=== PATIENT | female | born 1960 | race Caucasian/White ===

== ENCOUNTER 2016-10-28 16:25 | Emergency (ER) | payer BC ==
[~2016-10-28] VITALS: Ht 167.6 cm; Wt 68.0 kg
[~2016-10-28 16:25] MED LIST: ACHD5005 PO; AMOX-355 PO; AMOX500C2 PO; BACL20TA; CHOL100045 PO; CITA20TA12 PO; CRS350T PO; CTLP20T PO; ESTR2TAB4 PO; ESTROGEN; HYDR1TAB86 PO; LIOT5TAB6 PO; LIRA0.6P SQ; LORA-407 PO; LVT.05T PO; POTA10TA10 PO; PRD20T PO; SERT25TA PO
--- OUTSIDE RECORDS SUMMARY | 2016-10-28 16:32 | XMS REPORT | Continuity of Care Document ---
Author Author [facility] Organization [facility] Address Unknown Phone Unavailable Care Team Providers Care Driver Retraining Instructor Name Role Phone Dorita Mary Grace Zuniga PCP [phone] Source Comments Some departments are not documenting in the electronic medical record. If you do not see the information that you expected, contact Release of Information in the Health Information Management department at [phone] for further assistance in locating additional records.[facility] Active Allergies and Adverse Reactions Allergen Noted Date Severity Reactions Comments Celebrex 07/21/2015 Medium EDEMA Swelling of the face Gabapentin 07/21/2015 Medium HIVES Morphine 07/21/2015 Low VOMITING Stadol 07/21/2015 High HALLUCINATIONS Current Medications Prescription Sig. Disp. Refills Start End Date Status Date ERGOCALCIFEROL (VITAMIN Take by mouth. Active D2) (VITAMIN D PO) Lactobacillus rhamnosus Take by mouth twice Active GG (LACTOBACILLUS daily with meals. RHAMNOSUS (GG)) 15 billion cell cpSP magnesium Active LORazepam (ATIVAN) 1 mg Take 1 mg by mouth every Active tablet 4 hours as needed for Nausea, Vomiting or Other.... potassium chloride(+) Take 10 mEq by mouth Active (MICRO-K) 10 mEq capsule daily. LEVOTHYROXINE SODIUM Take 0.5 mg by mouth. Active (LEVOTHYROXINE PO) DULoxetine DR (CYMBALTA) Take 60 mg by mouth Active 30 mg capsule daily. liothyronine (CYTOMEL) 5 Take 5 mcg by mouth Active mcg tab daily. traMADol (ULTRAM) 50 mg Take 50 mg by mouth every Active tablet 6 hours as needed for Pain. HYDROcodone/acetaminophen Take 1 Tab by mouth every Active (NORCO; VICODIN) 5-325 mg 4 hours as needed for tablet Pain Active Problems No known active problems Social History Tobacco Use Types Packs/Day Years Used Date Never Smoker Last Filed Vital Signs Vital Sign Reading Time Taken Blood Pressure 121/77 04/02/2016 12:36 PM RADAR ENGINEER Pulse 86 04/02/2016 12:36 PM [employer]AR ENGINE[employer] Temperature 36.9 C (98.5 F) 04/02/2016 12:36 PM RADAR ENGINEER Respiratory Rate 16 04/02/2016 12:36 PM [employer]AR ENGINE[employer] Height 1.676 m (5' 6") 04/02/2016 12:36 PM RADAR ENGINEER Weight 67.314 kg (148 lb 6.4 oz) 04/02/2016 12:36 PM RADAR ENGINEER Body Mass Index 23.96 04/02/2016 12:36 PM RADAR ENGINEER Oxygen Saturation - - Plan of Care Health Maintenance Due Date Last Done Comments Hepatitis C Screening 1962 Physical (Comprehensive) 1969 Exam Pertussis Vaccine 1973 Tetanus Vaccine 1979 Cervical Cancer Screening 1983 Breast Cancer Screening 2002 Colorectal Cancer 2012 Screening Influenza Vaccine 12/17/2016 Results from Last 3 Months Not on file
--- OUTSIDE RECORDS SUMMARY | 2016-10-28 16:34 | XMS REPORT | Continuity of Care Document ---
Author Author [facility] Organization [facility] Address Unknown Phone Unavailable Allergies Active Description Code Type Severity Reaction Onset Reported/Identified Relationship to Patient Clinical Status Yes butorphanol [id number] Drug Allergy Mild N/A 04/11/2009 Yes celecoxib [id number] Drug Allergy Mild N/A 04/11/2009 Yes gabapentin [id number] Drug Allergy Unknown DIZZINESS 04/09/2015 Medications Problems Date Dx Coded Attending Type Code Diagnosis Diagnosed By 10/02/2009 Ot 610.0 05/12/2010 Ot 461.9 05/12/2010 Ot 462 07/03/2010 Ot 470 07/03/2010 Ot 473.2 07/03/2010 Ot 478.0 03/07/2014 QAMAR PHD MD, B T Ot 723.1 03/07/2014 KRISTINION PHD , B T Ot 724.1 03/07/2014 KRISTINION PHD , B T Ot 724.2 03/07/2014 KRISTINION PHD , B T Ot V57.1 03/18/2014 KRISTINION PHD , B T Ot 723.1 03/18/2014 QAMAR PHD , B T Ot 724.1 03/18/2014 QAMAR PHD , B T Ot 724.2 03/18/2014 KRISTINION PHD , B T Ot V57.1 04/08/2014 KRISTINION PHD , B T Ot 723.1 04/08/2014 KRISTINION PHD , B T Ot 724.1 04/08/2014 KRISTINION PHD , B T Ot 724.2 04/08/2014 QAMAR PHD , B T Ot V57.1 04/14/2014 Ot 610.0 04/14/2014 Ot 610.0 04/14/2014 Ot 473.9 04/14/2014 Ot 478.19 04/14/2014 Ot 592.0 04/14/2014 Ot 592.0 04/14/2014 Ot 721.3 04/14/2014 Ot 470 04/14/2014 Ot 473.9 04/14/2014 Ot 478.19 04/14/2014 Ot 473.9 04/14/2014 Ot 780.79 04/14/2014 Ot V72.63 04/14/2014 Ot V72.81 04/14/2014 Ot V74.8 04/14/2014 Ot 599.70 04/14/2014 Ot 789.09 04/14/2014 Ot 473.1 04/14/2014 Ot 473.2 04/14/2014 Ot V76.12 04/14/2014 Ot 786.50 04/14/2014 Ot 240.9 04/14/2014 Ot 268.9 04/14/2014 Ot 790.6 04/14/2014 Ot 536.8 04/14/2014 Ot 610.0 04/14/2014 Ot 789.01 04/14/2014 Ot 610.0 04/14/2014 Ot 793.80 04/14/2014 DORIS PEÑALOZA L CONTROL DIRECTOR Ot V76.12 04/14/2014 DORIS PEÑALOZA L CONTROL DIRECTOR Ot 536.8 04/14/2014 DORIS PEÑALOZA L CONTROL DIRECTOR Ot 789.00 04/14/2014 CINTHIA PRINCE DO Ot 625.9 04/14/2014 DORIS PEÑALOZA L CONTROL DIRECTOR Ot 562.10 04/14/2014 AUDREY PEÑALOZAIA L CONTROL DIRECTOR Ot 573.8 04/14/2014 AUDREY PEÑALOZAIA L CONTROL DIRECTOR Ot 592.0 04/14/2014 DORIS PEÑALOZA L CONTROL DIRECTOR Ot 724.5 04/14/2014 NICHELLE PEÑALOZARICIA L CONTROL DIRECTOR Ot 789.00 04/14/2014 CHAVA PEÑALOZA DO Ot 241.0 04/14/2014 CHAVA PEÑALOZA DO Ot V76.12 04/14/2014 DORIS PEÑALOZA L CONTROL DIRECTOR Ot 473.9 04/14/2014 DORIS PEÑALOZA L CONTROL DIRECTOR Ot 780.4 04/14/2014 DORIS PEÑALOZA L CONTROL DIRECTOR Ot 780.60 04/14/2014 DORIS PEÑALOZA L CONTROL DIRECTOR Ot 784.0 04/14/2014 DORIS PEÑALOZA CONTROL DIRECTOR Ot 721.0 04/14/2014 DORIS PEÑALOZA CONTROL DIRECTOR Ot 721.3 04/14/2014 DORIS PEÑALOZA CONTROL DIRECTOR Ot 724.01 04/14/2014 DORIS PEÑALOZA CONTROL DIRECTOR Ot 241.0 04/14/2014 QAMAR PHD , B T Ot 723.1 04/14/2014 QAMAR PHD , B T Ot 724.1 04/14/2014 QAMAR PHD , B T Ot 724.2 04/14/2014 QAMAR PHD , B T Ot V57.1 04/14/2014 CELSO HOWARD, JAREN Miller Ot 276.69 04/14/2014 JAREN HOUSTON MD Ot 786.50 04/14/2014 JAREN HOUSTON MD Ot V58.69 04/24/2014 CHAVA PEÑALOZA DO Ot 786.50 05/03/2014 RON MARTE MD Ot 722.4 05/03/2014 RON MARTE MD Ot V58.69 05/13/2014 CHAVA PEÑALOZA DO Ot 786.50 05/24/2014 RON MARTE MD Ot 722.51 05/24/2014 RON MARTE MD Ot 722.52 05/24/2014 RON MARTE MD Ot V58.69 06/04/2014 QAMAR RODRIGUES MD, B Matt Ot 723.1 06/04/2014 QAMAR RODRIGUES MD, Peña Gutierrez Ot 724.1 06/04/2014 QAMAR RODRIGUES MD, B T Ot 724.2 06/04/2014 QAMAR RODRIGUES MD, B T Ot V57.1 09/16/2014 DORIS PEÑALOZA CONTROL DIRECTOR Ot 240.9 09/16/2014 DORIS PEÑALOZA CONTROL DIRECTOR Ot 611.72 09/16/2014 DORIS PEÑALOZA CONTROL DIRECTOR Ot 276.51 09/16/2014 DORIS PEÑALOZA CONTROL DIRECTOR Ot 787.03 09/16/2014 DORIS PEÑALOZA CONTROL DIRECTOR Ot 276.51 09/16/2014 DORIS PEÑALOZA CONTROL DIRECTOR Ot 787.03 09/17/2014 DORIS PEÑALOZA CONTROL DIRECTOR Ot 240.9 09/17/2014 JHDORIS CONTROL DIRECTOR Ot 611.72 09/17/2014 JHDORIS CONTROL DIRECTOR Ot 276.51 09/17/2014 PEÑALOZADORIS CONTROL DIRECTOR Ot 787.03 10/01/2014 PEÑALOZADORIS CONTROL DIRECTOR Ot 240.9 10/01/2014 JHDORIS CONTROL DIRECTOR Ot 611.72 10/02/2014 JHDORIS CONTROL DIRECTOR Ot 276.51 10/02/2014 JHDORIS CONTROL DIRECTOR Ot 787.03 12/02/2014 ESTUARDO HOWARD, RON Milton Ot 722.51 12/02/2014 RON MARTE MD Ot 722.52 12/02/2014 RON MARTE MD Ot V58.69 12/26/2014 LARISSA MARTIN CONTROL DIRECTOR Ot 625.9 12/26/2014 LARISSA MARTIN CONTROL DIRECTOR Ot 789.00 02/17/2015 Ot 592.0 02/17/2015 Ot 592.0 02/17/2015 Ot 721.3 02/17/2015 Ot 470 02/17/2015 Ot 473.9 02/17/2015 Ot 478.19 02/17/2015 Ot 473.9 02/17/2015 Ot 780.79 02/17/2015 Ot V72.63 02/17/2015 Ot V72.81 02/17/2015 Ot V74.8 02/17/2015 Ot 599.70 02/17/2015 Ot 789.09 02/17/2015 Ot 473.1 02/17/2015 Ot 473.2 02/17/2015 Ot V76.12 02/17/2015 Ot 786.50 02/17/2015 Ot 240.9 02/17/2015 Ot 268.9 02/17/2015 Ot 790.6 02/17/2015 Ot 536.8 02/17/2015 Ot 610.0 02/17/2015 Ot 789.01 02/17/2015 Ot 610.0 02/17/2015 Ot 793.80 02/17/2015 HJ DORIS Guanaco CONTROL DIRECTOR Ot V76.12 02/17/2015 JH DORIS Blanc CONTROL DIRECTOR Ot 536.8 02/17/2015 JH DORIS L CONTROL DIRECTOR Ot 789.00 02/17/2015 CINTHIA PRINCE DO Ot 625.9 02/17/2015 PEÑALOZA, DORIS L CONTROL DIRECTOR Ot 562.10 02/17/2015 PEÑALOZA, DORIS L CONTROL DIRECTOR Ot 573.8 02/17/2015 PEÑALOZA, DORIS L CONTROL DIRECTOR Ot 592.0 02/17/2015 PEÑALOZA, DORIS L CONTROL DIRECTOR Ot 724.5 02/17/2015 PEÑALOZA, DORIS L CONTROL DIRECTOR Ot 789.00 02/17/2015 CHAVA PEÑALOZA DO Ot 241.0 02/17/2015 CHAVA PEÑALOZA DO Ot V76.12 02/17/2015 NICHELLE PEÑALOZARICIA L CONTROL DIRECTOR Ot 473.9 02/17/2015 PEÑALOZA, DORIS L CONTROL DIRECTOR Ot 780.4 02/17/2015 JH DORIS L CONTROL DIRECTOR Ot 780.60 02/17/2015 PEÑALOZA, DORIS L CONTROL DIRECTOR Ot 784.0 02/17/2015 PEÑALOZA, DORIS L CONTROL DIRECTOR Ot 721.0 02/17/2015 PEÑALOZA, DORIS L CONTROL DIRECTOR Ot 721.3 02/17/2015 PEÑALZOA, DORIS L CONTROL DIRECTOR Ot 724.01 02/17/2015 PEÑALOZA, DORIS L CONTROL DIRECTOR Ot 241.0 02/17/2015 CHAVA PEÑALOZA DO Ot 786.50 02/17/2015 Ot 723.1 02/17/2015 Ot 724.1 02/17/2015 Ot 724.2 02/17/2015 Ot V57.1 02/17/2015 PEÑALOZA, DORIS L CONTROL DIRECTOR Ot 276.51 02/17/2015 PEÑALOZA, DORIS L CONTROL DIRECTOR Ot 787.03 02/17/2015 PEÑALOZA, DORIS L CONTROL DIRECTOR Ot 240.9 02/17/2015 PEÑALOZA, DORIS L CONTROL DIRECTOR Ot 611.72 02/17/2015 LARISSA MARTIN CONTROL DIRECTOR Ot 625.9 02/17/2015 LARISSA MARTIN CONTROL DIRECTOR Ot 789.00 02/17/2015 RON MARTE MD Ot M51.26 02/18/2015 RON MARTE MD Ot M51.26 04/09/2015 Ot 723.1 04/09/2015 Ot 724.1 04/09/2015 Ot 724.2 04/09/2015 Ot V57.1 04/09/2015 MARLEN MOTLEY CONTROL DIRECTOR Ot Z01.89 04/09/2015 MARLEN MOTLEY CONTROL DIRECTOR Ot Z80.42 04/14/2015 Ot 721.3 04/14/2015 Ot 470 04/14/2015 Ot 473.9 04/14/2015 Ot 478.19 04/14/2015 Ot 473.9 04/14/2015 Ot 780.79 04/14/2015 Ot V72.63 04/14/2015 Ot V72.81 04/14/2015 Ot V74.8 04/14/2015 Ot 599.70 04/14/2015 Ot 789.09 04/14/2015 Ot 473.1 04/14/2015 Ot 473.2 04/14/2015 Ot V76.12 04/14/2015 Ot 786.50 04/14/2015 Ot 240.9 04/14/2015 Ot 268.9 04/14/2015 Ot 790.6 04/14/2015 Ot 536.8 04/14/2015 Ot 610.0 04/14/2015 Ot 789.01 04/14/2015 Ot 610.0 04/14/2015 Ot 793.80 04/14/2015 DORIS PEÑALOZA L CONTROL DIRECTOR Ot V76.12 04/14/2015 DORIS PEÑALOZA L CONTROL DIRECTOR Ot 536.8 04/14/2015 DORIS PEÑALOZA L CONTROL DIRECTOR Ot 789.00 04/14/2015 CINTHIA PRINCE DO Ot 625.9 04/14/2015 DORIS PEÑALOZA L CONTROL DIRECTOR Ot 562.10 04/14/2015 DORIS PEÑALOZA L CONTROL DIRECTOR Ot 573.8 04/14/2015 DORIS PEÑALOZA L CONTROL DIRECTOR Ot 592.0 04/14/2015 DORIS PEÑALOZA L CONTROL DIRECTOR Ot 724.5 04/14/2015 DORIS PEÑALOZA L CONTROL DIRECTOR Ot 789.00 04/14/2015 CHAVA PEÑALOZA DO Ot 241.0 04/14/2015 CHAVA PEÑALOZA DO Ot V76.12 04/14/2015 DORIS PEÑALOZA CONTROL DIRECTOR Ot 473.9 04/14/2015 DORIS PEÑALOZA CONTROL DIRECTOR Ot 780.4 04/14/2015 DORIS PEÑALOZA CONTROL DIRECTOR Ot 780.60 04/14/2015 DORIS PEÑALOZA CONTROL DIRECTOR Ot 784.0 04/14/2015 DORIS PEÑALOZA CONTROL DIRECTOR Ot 721.0 04/14/2015 DORIS PEÑALOZA CONTROL DIRECTOR Ot 721.3 04/14/2015 DORIS PEÑALOZA CONTROL DIRECTOR Ot 724.01 04/14/2015 DORIS PEÑALOZA CONTROL DIRECTOR Ot 241.0 04/14/2015 CHAVA PEÑALOZA DO Ot 786.50 04/14/2015 Ot 723.1 04/14/2015 Ot 724.1 04/14/2015 Ot 724.2 04/14/2015 Ot V57.1 04/14/2015 DORIS PEÑALOZA CONTROL DIRECTOR Ot 276.51 04/14/2015 DORIS PEÑALOZA CONTROL DIRECTOR Ot 787.03 04/14/2015 DORIS PEÑALOZA CONTROL DIRECTOR Ot 240.9 04/14/2015 DORIS PEÑALOZA CONTROL DIRECTOR Ot 611.72 04/14/2015 LARISSA MARTIN CONTROL DIRECTOR Ot 625.9 04/14/2015 LARISSA MARTIN CONTROL DIRECTOR Ot 789.00 04/14/2015 ESTUARDO HOWARD, RON Milton Ot M51.26 04/14/2015 MARLEN MOTLEY CONTROL DIRECTOR Ot Z01.89 04/14/2015 MARLEN MOTLEY CONTROL DIRECTOR Ot Z80.42 04/14/2015 IAN HOWARD, KAY Gallardo Ot Z01.818 04/14/2015 IAN HOWARD, KAY Gallardo Ot K57.90 04/14/2015 IAN HOWARD, KAY Gallardo Ot Z09 04/14/2015 IAN HOWARD, KAY Gallardo Ot Z12.11 04/14/2015 IAN HOWARD, KAY Gallardo Ot Z86.010 04/14/2015 IAN HOWARD, KAY Gallardo Ot Z01.818 05/15/2015 MARLEN MOTLEY CONTROL DIRECTOR Ot Z14.8 05/15/2015 MARLEN MOTLEY CONTROL DIRECTOR Ot Z80.0 05/19/2015 TARYN TOLBERT CLAM PICKER Ot Z15.01 05/21/2015 TARYN TOLBERT CLAM PICKER Ot Z15.01 05/29/2015 TARYN TOLBERT CLAM PICKER Ot Z15.01 06/05/2015 FRANCISCO VILLATORO CONTROL DIRECTOR Ot Z15.01 06/05/2015 TARYN TOLBERT CLAM PICKER Ot Z15.01 06/10/2015 PARTHA SNIDER CLAM PICKER Ot R53.1 06/10/2015 PARTHA SNIDER CLAM PICKER Ot R53.83 06/10/2015 FRANCISCO VILLATORO CONTROL DIRECTOR Ot Z15.01 06/10/2015 MARLEN MOTLEY CONTROL DIRECTOR Ot Z14.8 06/10/2015 MARLEN MOTLEY CONTROL DIRECTOR Ot Z80.0 06/10/2015 TARYN TOLBERT CLAM PICKER Ot Z15.01 06/10/2015 Ot 721.3 06/10/2015 Ot 470 06/10/2015 Ot 473.9 06/10/2015 Ot 478.19 06/10/2015 Ot 473.9 06/10/2015 Ot 780.79 06/10/2015 Ot V72.63 06/10/2015 Ot V72.81 06/10/2015 Ot V74.8 06/10/2015 Ot 599.70 06/10/2015 Ot 789.09 06/10/2015 Ot 473.1 06/10/2015 Ot 473.2 06/10/2015 Ot V76.12 06/10/2015 Ot 786.50 06/10/2015 Ot 240.9 06/10/2015 Ot 268.9 06/10/2015 Ot 790.6 06/10/2015 Ot 536.8 06/10/2015 Ot 610.0 06/10/2015 Ot 789.01 06/10/2015 Ot 610.0 06/10/2015 Ot 793.80 06/10/2015 DORIS PEÑALOZA CONTROL DIRECTOR Ot V76.12 06/10/2015 DORIS PEÑALOZA CONTROL DIRECTOR Ot 536.8 06/10/2015 PEÑALOZA, DORIS L CONTROL DIRECTOR Ot 789.00 06/10/2015 CINTHIA PRINCE DO Ot 625.9 06/10/2015 NICHELLE PEÑALOZARICIA L CONTROL DIRECTOR Ot 562.10 06/10/2015 PEÑALOZA, DORIS L CONTROL DIRECTOR Ot 573.8 06/10/2015 PEÑALOZA, DORIS L CONTROL DIRECTOR Ot 592.0 06/10/2015 PEÑALOZA, DORIS L CONTROL DIRECTOR Ot 724.5 06/10/2015 PEÑALOZA, DORIS L CONTROL DIRECTOR Ot 789.00 06/10/2015 CHAVA PEÑALOZA DO Ot 241.0 06/10/2015 CHAVA PEÑALOZA DO Ot V76.12 06/10/2015 NICHELLE PEÑALOZARICIA L CONTROL DIRECTOR Ot 473.9 06/10/2015 JH DORIS L CONTROL DIRECTOR Ot 780.4 06/10/2015 JH DORIS L CONTROL DIRECTOR Ot 780.60 06/10/2015 JH DORIS L CONTROL DIRECTOR Ot 784.0 06/10/2015 JH DORIS L CONTROL DIRECTOR Ot 721.0 06/10/2015 PEÑALOZA, DORIS L CONTROL DIRECTOR Ot 721.3 06/10/2015 JH DORIS L CONTROL DIRECTOR Ot 724.01 06/10/2015 PEÑALOZA, DORIS L CONTROL DIRECTOR Ot 241.0 06/10/2015 CHAVA PEÑALOZA DO Ot 786.50 06/10/2015 Ot 723.1 06/10/2015 Ot 724.1 06/10/2015 Ot 724.2 06/10/2015 Ot V57.1 06/10/2015 JH DORIS L CONTROL DIRECTOR Ot 276.51 06/10/2015 PEÑALOZA, DORIS L CONTROL DIRECTOR Ot 787.03 06/10/2015 JH DORIS L CONTROL DIRECTOR Ot 240.9 06/10/2015 PEÑALOZA, DORIS L CONTROL DIRECTOR Ot 611.72 06/10/2015 LARISSA MARTIN CONTROL DIRECTOR Ot 625.9 06/10/2015 LARISSA MARTIN CONTROL DIRECTOR Ot 789.00 06/10/2015 RON MARTE MD Ot M51.26 06/10/2015 MOTLEYMARLEN Avina CONTROL DIRECTOR Ot Z01.89 06/10/2015 MOTLEYMARLEN Avina CONTROL DIRECTOR Ot Z80.42 06/10/2015 IAN HOWARD, KAY M Ot Z01.818 06/10/2015 MOTLEYMARLEN Avina CONTROL DIRECTOR Ot Z14.8 06/10/2015 MOTLEYMARLEN Avina CONTROL DIRECTOR Ot Z80.0 06/10/2015 TARYN TOLBERT CLAM PICKER Ot Z15.01 06/10/2015 FRANCISCO VILLATORO CONTROL DIRECTOR Ot Z15.01 06/10/2015 PARTHA SNIDER CLAM PICKER Ot R53.1 06/10/2015 PARTHA SNIDER CLAM PICKER Ot R53.83 06/16/2015 PARTHA SNIDER CLAM PICKER Ot R53.1 06/16/2015 PARTHA SNIDER CLAM PICKER Ot R53.83 07/28/2015 NICHOLE FERRARI CLAM PICKER Ot E03.9 07/28/2015 NICHOLE FERRARI CLAM PICKER Ot M19.90 07/28/2015 NICHOLE FERRARI CLAM PICKER Ot Z15.02 07/28/2015 NICHOLE FERRARI CLAM PICKER Ot Z86.19 07/31/2015 PARTHA SNIDER CLAM PICKER Ot R53.1 07/31/2015 PARTHA SNIDER CLAM PICKER Ot R53.83 07/31/2015 TARYN TOLBERT CLAM PICKER Ot Z15.01 07/31/2015 FRANCISCO VILLATORO CONTROL DIRECTOR Ot Z15.01 07/31/2015 CLYDE MOTLEYNELSON Fabrice CONTROL DIRECTOR Ot Z14.8 07/31/2015 MOTLEY MARLEN Fabrice CONTROL DIRECTOR Ot Z80.0 08/06/2015 NICHOLE FERRARI CLAM PICKER Ot E03.9 HYPOTHYROIDISM, UNSPECIFIED 08/06/2015 NICHOLE FERRARI CLAM PICKER Ot M19.90 UNSPECIFIED OSTEOARTHRITIS, UNSPECIFIED 08/06/2015 NICHOLE FERRARI CLAM PICKER Ot 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 08/06/2015 NICHOLE FERRARI CLAM PICKER Ot Z86.19 PERSONAL HISTORY OF OTHER INFECTIOUS AND 08/07/2015 NICHOLE FERRARI CLAM PICKER Ot E03.9 HYPOTHYROIDISM, UNSPECIFIED 08/07/2015 NICHOLE FERRARI CLAM PICKER Ot M19.90 UNSPECIFIED OSTEOARTHRITIS, UNSPECIFIED 08/07/2015 NICHOLE FERRARI CLAM PICKER Ot 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 08/07/2015 NICHOLE FERRARI CLAM PICKER Ot Z86.19 PERSONAL HISTORY OF OTHER INFECTIOUS AND 10/13/2015 FRANCISCO VILLATORO CONTROL DIRECTOR Ot 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 10/13/2015 FRANCISCO VILLATORO CONTROL DIRECTOR Ot K76.89 OTHER SPECIFIED DISEASES OF LIVER 10/13/2015 FRANCISCO VILLATORO CONTROL DIRECTOR Ot M47.22 OTHER SPONDYLOSIS WITH RADICULOPATHY , CE 10/13/2015 FRANCISCO VILLATORO CONTROL DIRECTOR Ot M54.2 CERVICALGIA 10/13/2015 FRANCISCO VILLATORO CONTROL DIRECTOR Ot M54.5 LOW BACK PAIN 10/13/2015 FRANCISCO VILLATORO CONTROL DIRECTOR Ot N20.0 CALCULUS OF KIDNEY 10/13/2015 FRANCISCO VILLATORO CONTROL DIRECTOR Ot 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 10/13/2015 FRANCISCO VILLATORO CONTROL DIRECTOR Ot Z80.0 FAMILY HISTORY OF MALIGNANT NEOPLASM OF 10/17/2015 FRANCISCO VILLATORO CONTROL DIRECTOR Ot 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 10/17/2015 FRANCISCO VILLATORO CONTROL DIRECTOR Ot K76.89 OTHER SPECIFIED DISEASES OF LIVER 10/17/2015 FRANCISCO VILLATORO CONTROL DIRECTOR Ot M47.22 OTHER SPONDYLOSIS WITH RADICULOPATHY , CE 10/17/2015 FRANCISCO VILLATORO CONTROL DIRECTOR Ot M54.2 CERVICALGIA 10/17/2015 FRANCISCO VILLATORO CONTROL DIRECTOR Ot M54.5 LOW BACK PAIN 10/17/2015 FRANCISCO VILLATORO CONTROL DIRECTOR Ot N20.0 CALCULUS OF KIDNEY 10/17/2015 FRANCISCO VILLATORO CONTROL DIRECTOR Ot 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 10/17/2015 FRANCISCO VILLATORO CONTROL DIRECTOR Ot Z80.0 FAMILY HISTORY OF MALIGNANT NEOPLASM OF 10/19/2015 FRANCISCO VILLATORO CONTROL DIRECTOR Ot 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 10/19/2015 IRVINGFRANCISCO CONTROL DIRECTOR Ot K76.89 OTHER SPECIFIED DISEASES OF LIVER 10/19/2015 IRVINGOSCARARJUN Gallardo CONTROL DIRECTOR Ot M47.22 OTHER SPONDYLOSIS WITH RADICULOPATHY , CE 10/19/2015 IRVINGFRANCISCO Paulina CONTROL DIRECTOR Ot M54.2 CERVICALGIA 10/19/2015 IRVINGOSCARARJUN Gallardo CONTROL DIRECTOR Ot M54.5 LOW BACK PAIN 10/19/2015 IRVING FRANCISCO M CONTROL DIRECTOR Ot N20.0 CALCULUS OF KIDNEY 10/19/2015 IRVINGOSCARARJUN Gallardo CONTROL DIRECTOR Ot 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 10/19/2015 IRVING FRANCISCO M CONTROL DIRECTOR Ot Z80.0 FAMILY HISTORY OF MALIGNANT NEOPLASM OF 10/23/2015 MEE VILLATOROHANARJUN Gallardo CONTROL DIRECTOR Ot 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 10/23/2015 FRANCISCO VILLATORO CONTROL DIRECTOR Ot K76.89 OTHER SPECIFIED DISEASES OF LIVER 10/23/2015 IRVING FRANCISCO M CONTROL DIRECTOR Ot M47.22 OTHER SPONDYLOSIS WITH RADICULOPATHY , CE 10/23/2015 IRVING FRANCISCO M CONTROL DIRECTOR Ot M54.2 CERVICALGIA 10/23/2015 IRVING FRANCISCO M CONTROL DIRECTOR Ot M54.5 LOW BACK PAIN 10/23/2015 FRANCISCO VILLATORO CONTROL DIRECTOR Ot N20.0 CALCULUS OF KIDNEY 10/23/2015 IRVING FRANCISCO M CONTROL DIRECTOR Ot 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 10/23/2015 IRVING FRANCISCO M CONTROL DIRECTOR Ot Z80.0 FAMILY HISTORY OF MALIGNANT NEOPLASM OF 11/07/2015 FRANCISCO VILLATORO CONTROL DIRECTOR Ot 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 11/07/2015 MEE VILLATOROHANARJUN Gallardo CONTROL DIRECTOR Ot K76.89 OTHER SPECIFIED DISEASES OF LIVER 11/07/2015 FRANCISCO VILLATORO CONTROL DIRECTOR Ot M47.22 OTHER SPONDYLOSIS WITH RADICULOPATHY , CE 11/07/2015 IRVING FRANCISCO M CONTROL DIRECTOR Ot M54.2 CERVICALGIA 11/07/2015 FRANCISCO VILLATORO CONTROL DIRECTOR Ot M54.5 LOW BACK PAIN 11/07/2015 FRANCISCO VILLATORO CONTROL DIRECTOR Ot N20.0 CALCULUS OF KIDNEY 11/07/2015 FRANCISCO VILLATORO [facility] Ot 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 Visit Date/Time Discharge Status Pt. Type Provider Facility Loc./Unit Complaint [id number] 04/14/2015 09:11:00 2014 12:05:00 DIS Outpatient KAY SOSA MD [facility] [id number] 02/05/2015 08:14:00 2014 23:59:59 CLS Outpatient RON MARTE MD [facility] RAD [id number] 12/12/2014 09:41:00 2014 23:59:59 CLS Outpatient LARISSA MARTIN [facility] RAD [id number] 12/02/2014 13:48:00 2014 15:31:00 DIS Outpatient RON MARTE MD [facility] CARD [id number] 09/06/2014 07:35:00 2014 23:59:59 CLS Outpatient DORIS PEÑALOZA [facility] RAD [id number] 08/21/2014 11:15:00 2014 23:59:59 CLS Outpatient DORIS PEÑALOZA [facility] [id number] 06/04/2014 13:02:00 2014 23:59:59 CLS Outpatient QAMAR RODRIGUES MD, Peña Gutierrez [facility] REHAB [id number] 05/24/2014 07:06:00 2014 08:03:00 DIS Outpatient RON MARTE MD [facility] CARD [id number] 05/03/2014 08:51:00 2014 10:02:00 DIS Outpatient RON MARTE MD [facility] CARD [id number] 04/16/2014 07:16:00 2013 23:59:59 CLS Outpatient CHAVA PEÑALOZA DO [facility] CARD [id number] 04/14/2014 15:52:00 2013 17:30:00 DIS Emergency CELSO HOWARD, JAREN Miller [facility] ER [id number] 02/05/2014 11:11:00 2013 23:59:59 CLS Outpatient PEÑALOZANICHELLEDORIS L CONTROL DIRECTOR [facility] RAD [id number] 01/31/2014 15:06:00 2013 23:59:59 CLS Outpatient PEÑALOZA DORIS L CONTROL DIRECTOR [facility] RAD [id number] 12/05/2013 11:45:00 2013 23:59:59 CLS Outpatient PEÑALOZA, DORIS L CONTROL DIRECTOR [facility] RAD [id number] 08/31/2013 10:20:00 2013 23:59:59 CLS Outpatient PEÑALOZA CHAVA [facility] RAD [id number] 07/17/2013 09:33:00 2013 23:59:59 CLS Outpatient PEÑALOZA DORIS L CONTROL DIRECTOR [facility] RAD [id number] 11/15/2012 14:59:00 2012 23:59:59 CLS Outpatient CINTHIA PRINCE DO [facility] RAD [id number] 10/13/2012 09:53:00 2012 23:59:59 CLS Outpatient PEÑALOZA DORIS L CONTROL DIRECTOR [facility] RAD [id number] 08/17/2012 15:30:00 2012 23:59:59 CLS Outpatient PEÑALOZA DORIS L CONTROL DIRECTOR [facility] RAD [id number] 10/13/2015 15:07:00 ACT Outpatient FRANCISCO VILLATORO CONTROL DIRECTOR [facility] RAD [id number] 10/10/2015 13:43:00 ACT Outpatient FRANCISCO VILLATORO CONTROL DIRECTOR [facility] RAD [id number] 07/25/2015 12:40:00 ACT Outpatient NICHOLE FERRARI CLAM PICKER [facility] RAD [id number] 05/30/2015 10:30:00 ACT Outpatient PARTHA SNIDER CLAM PICKER [facility] CARD [id number] 05/19/2015 13:50:00 ACT Outpatient IRVING FRANCISCO M CONTROL DIRECTOR [facility] RAD [id number] 05/14/2015 10:33:00 ACT Outpatient TOMASZ TARYN Yoan CLAM PICKER [facility] RAD [id number] 04/23/2015 14:36:00 ACT Outpatient MARLEN MOTLEY CONTROL DIRECTOR [facility] ONC [id number] 04/09/2015 06:09:00 ACT Outpatient AIN HOWARD, KAY Gallardo [facility] PREOP [id number] 03/25/2015 13:47:00 ACT Outpatient MARLEN MOTLEY CONTROL DIRECTOR [facility] ONC [id number] 06/05/2014 00:11:00 Document Registration [id number] 04/14/2014 15:53:00 Document Registration [id number] 04/14/2014 15:53:00 Document Registration [id number] 04/14/2014 15:52:00 Document Registration [id number] 09/06/2011 15:01:00 Document Registration [id number] 06/14/2011 07:20:00 Document Registration [id number] 04/07/2011 08:02:00 Document Registration [id number] 03/29/2011 10:52:00 Document Registration [id number] 10/26/2010 13:41:00 Document Registration [id number] 08/18/2010 14:43:00 Document Registration [id number] 08/18/2010 14:16:00 Document Registration [id number] 08/03/2010 13:37:00 Document Registration [id number] 07/03/2010 05:43:00 Document Registration [id number] 06/25/2010 12:59:00 Document Registration [id number] 05/26/2010 09:40:00 Document Registration [id number] 05/11/2010 23:31:00 Document Registration [id number] 03/11/2010 09:28:00 Document Registration [id number] 10/01/2009 14:18:00 Document Registration [id number] 09/12/2009 08:21:00 Document Registration [id number] 09/08/2009 12:34:00 Document Registration [id number] 04/23/2009 09:58:00 Document Registration [id number] 02/26/2009 13:57:00 Document Registration [id number] 10/23/2008 09:47:00 Document Registration
[2016-10-28] MEDS ORDERED: LORA1TAB (16:44)
[2016-10-28] MEDS ORDERED: HYDR-3812 (16:44)
[2016-10-28] MEDS ORDERED: TRAM50TA2 (16:44)
[2016-10-28 16:45] LABS: BASOPHILS % (AUTO) 0 % (0-10); EOSINOPHILS # (AUTO) 0.3 10^3/uL (0.0-0.3); EOSINOPHILS % (AUTO) 3 % (0-10); LYMPHOCYTES # (AUTO) 3.3 X 10^3 (1.0-4.0); LYMPHOCYTES % (AUTO) 34 % (12-44); MEAN CORPUSCULAR HEMOGLOBIN 29 PG (25-34); MEAN CORPUSCULAR HGB CONC 33 G/DL (32-36); MEAN CORPUSCULAR VOLUME 87 FL (80-99); MEAN PLATELET VOLUME 9.8 FL (7.4-10.4); MONOCYTES # (AUTO) 0.9 X 10^3 (0.0-1.0); MONOCYTES % (AUTO) 9 % (0-12); NEUTROPHILS # (AUTO) 5.2 X 10^3 (1.8-7.8); NEUTROPHILS % (AUTO) 54 % (42-75); PLATELET COUNT 271 10^3/uL (130-400); RED BLOOD COUNT 4.44 10^6/uL (4.35-5.85); RED CELL DISTRIBUTION WIDTH 13.1 % (10.0-14.5); WHITE BLOOD COUNT 9.7 10^3/uL (4.3-11.0)
[2016-10-28] MEDS ORDERED: OMEP20CA12 (16:45)
[2016-10-28] MEDS ORDERED: ONDA4TAB10 (16:45)
[2016-10-28] MEDS ORDERED: LEVO50TA6 (16:45)
[2016-10-28] MEDS ORDERED: FLUO20CA25 (16:45)
[2016-10-28] MEDS ORDERED: MELO7.5T46 (16:45)
[2016-10-28 17:00] LABS: ALANINE AMINOTRANSFERASE 24 U/L (0-55); ALBUMIN 3.9 GM/DL (3.2-4.5); ANION GAP 8 MMOL/L (5-14); ASPARTATE AMINO TRANSFERASE 33 U/L (5-34); BILIRUBIN,TOTAL 0.8 MG/DL (0.1-1.0); BLOOD UREA NITROGEN 18 MG/DL (7-18); BUN/CREATININE RATIO 22; CALCIUM 9.3 MG/DL (8.5-10.1); CARBON DIOXIDE 26 MMOL/L (21-32); CHLORIDE 105 MMOL/L (98-107); CREATININE SERUM 0.83 MG/DL (0.60-1.30); GFR ESTIMATED > 60; GLUCOSE 83 MG/DL (70-105); SODIUM 139 MMOL/L (135-145); TOTAL PROTEIN 6.8 GM/DL (6.4-8.2)
[2016-10-28 17:06] LABS: TROPONIN I < 0.30 NG/ML (<0.30)
--- NOTE | 2016-10-28 17:09 | Diagnostic Imaging Report ---
INDICATION: Chest pain with radiation to left shoulder and arm. TECHNIQUE: Single view chest 4:57 PM. CORRELATION STUDY: None FINDINGS: The heart size, mediastinal configuration and pulmonary vascularity are within normal limits. The lungs are clear with no consolidating infiltrate. There is no significant effusion or pneumothorax. A few probable granulomas are present. IMPRESSION: 1. No radiographic evidence for acute abnormality of the chest. Dictated by: Dictated on workstation # [id number]
--- NOTE | 2016-10-28 17:25 | ED Chest Pain ---
General Chief Complaint: Chest Pain Stated Complaint: CHEST PAIN,SOB,LT ARM AND BACK PAIN/NUMBNESS Nursing Triage Note: PT STATES CHEST PAIN FOR ABOUT 90 MIN WITH SOB, CLEANED 2 HOUSES TODAY. PT ALSO STATES NOT URINATING MUCH TODAY, ONLY THE SECOND TIME HERE IN THE ER. Nursing Sepsis Screen: No Definite Risk Source: patient Exam Limitations: no limitations History of Present Illness Time seen by provider: 17:20 Initial Comments The patient is a 56-year-old white female with complaint of a complaint of anterior chest pressure for about 90 minutes prior to arrival. She sees Dr. Kevin and had called the office and was advised to come here. There is a family history of heart disease with 3 male members having had myocardial infarctions before age 60. She does not know what her cholesterol is and does not take medication. She had a previous hysterectomy since oophorectomy. She has subsequently undergone menopause. She is a lifetime nonsmoker. 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 Timing/Duration: 1-3 hours Severity/Quality: mild, moderate Location: central Radiation: back Activities at Onset: activity Prior CP/Workup: no prior chest pain, no prior cardiac workup Modifying Factors: improves with antacids, improves with other (benzodiazepine ) Associated Symptoms: denies symptoms Allergies and Home Medications Allergies Coded Allergies: morphine (Verified Allergy, Intermediate, 10/28/16) butorphanol (Unverified Allergy, Mild, 04/11/09) celecoxib (Unverified Allergy, Mild, 04/11/09) gabapentin (Verified Allergy, Unknown, DIZZINESS, 04/09/15) Home Medications Fluoxetine HCl 20 Mg Capsule, #30 (Reported) Hydrocodone/Acetaminophen 1 Each Tablet, #30 (Reported) Levothyroxine Sodium 50 Mcg Tablet, #30 (Reported) Liothyronine Sodium 5 Mcg Tablet, 5 MCG PO DAILY, (Reported) Lorazepam 1 Mg Tablet, #60 (Reported) Meloxicam 7.5 Mg Tablet, #90 (Reported) Omeprazole 20 Mg Capsule., #30 (Reported) Ondansetron HCl 4 Mg Tablet, #30 (Reported) Potassium Chloride 10 Meq Tablet.er, 10 MEQ PO DAILY, (Reported) Tramadol HCl 50 Mg Tablet, #90 (Reported) Review of Systems Constitutional: see HPI EENTM: No Symptoms Reported Respiratory: No Symptoms Reported Cardiovascular: See HPI, Chest Pain Gastrointestinal: No Symptoms Reported Genitourinary: No Symptoms Reported Musculoskeletal: no symptoms reported Skin: no symptoms reported Psychiatric/Neurological: No Symptoms Reported Endocrine: No Symptoms Reported Hematologic/Lymphatic: No Symptoms Reported Past Vsgfxvh-[id number]-Rzufye Hx Patient Social History Alcohol Use: Denies Use Recreational Drug Use: No Smoking Status: Never a Smoker Recent Foreign Travel: No Contact w/Someone Who Travel: No Recent Infectious Disease Expo: No Recent Hopitalizations: No Immunizations Up To Date Date of Influenza Vaccine: Jan 30, 2015 Seasonal Allergies Seasonal Allergies: Yes Surgeries HX Surgeries: Yes (back, hand, kidney biopsy) Surgeries: Adenoidectomy, Breast, Hysterectomy, Orthopedic, Tonsillectomy Respiratory Hx Respiratory Disorders: No Cardiovascular Hx Cardiac Disorders: No Neurological Hx Neurological Disorders: No Reproductive System Hx Reproductive Disorders: No Sexually Transmitted Disease: No Genitourinary Hx Genitourinary Disorders: Yes (STONES) Gastrointestinal Hx Gastrointestinal Disorders: No Musculoskeletal Hx Musculoskeletal Disorders: Yes (BACK/HAND/OSTEOARTHRITIS/DEGENERATIVE DISC) Musculoskeletal Disorders: Degenerate Disk Disease, Arthritis Endocrine Hx Endocrine Disorders: Yes Endocrine Disorders: Hypothyroidsim HEENT HX ENT Disorders: No Cancer Hx Cancer: No Cancer: Skin Psychosocial Hx Psychiatric Problems: Yes Behavioral Health Disorders: Anxiety, Depression Integumentary HX Skin/Integumentary Disorder: No Blood Transfusions Hx Blood Disorders: No Physical Exam Vital Signs Vital Sign - Last 12Hours 10/28/16 16:28 Temp 96.2 Pulse 69 Resp 18 B/P (MAP) 135/70 Pulse Ox 100 O2 Delivery Room Air Capillary Refill : Less Than 3 Seconds General Appearance: Anxious HEENT: Normal ENT Inspection Neck: Full Range of Motion, Normal Inspection Respiratory: Chest Non Tender, Lungs Clear, Normal Breath Sounds, No Accessory Muscle Use, No Respiratory Distress Cardiovascular: Regular Rate, Rhythm, No Edema, No Gallop, No JVD, No Murmur, Normal Peripheral Pulses Gastrointestinal: Normal Bowel Sounds, No Organomegaly, No Pulsatile Mass, Non Tender Neurologic/Psychiatric: Alert, Oriented x3, No Motor/Sensory Deficits, Normal Mood/Affect Skin: Normal Color, Warm/Dry Lymphatic: No Adenopathy Progress/Results/Core Measures Results/Orders Lab Results Laboratory Tests Test 10/28/16 16:34 Range/Units White Blood Count 9.7 4.3-11.0 10^3/uL Red Blood Count 4.44 4.35-5.85 10^6/uL Hemoglobin 12.8 11.5-16.0 G/DL Hematocrit 39 35-52 % Mean Corpuscular Volume 87 80-99 FL Mean Corpuscular Hemoglobin 29 25-34 PG Mean Corpuscular Hemoglobin Concent 33 32-36 G/DL Red Cell Distribution Width 13.1 10.0-14.5 % Platelet Count 271 130-400 10^3/uL Mean Platelet Volume 9.8 7.4-10.4 FL Neutrophils (%) (Auto) 54 42-75 % Lymphocytes (%) (Auto) 34 12-44 % Monocytes (%) (Auto) 9 0-12 % Eosinophils (%) (Auto) 3 0-10 % Basophils (%) (Auto) 0 0-10 % Neutrophils # (Auto) 5.2 1.8-7.8 X 10^3 Lymphocytes # (Auto) 3.3 1.0-4.0 X 10^3 Monocytes # (Auto) 0.9 0.0-1.0 X 10^3 Eosinophils # (Auto) 0.3 0.0-0.3 10^3/uL Basophils # (Auto) 0.0 0.0-0.1 10^3/uL Sodium Level 139 135-145 MMOL/L Potassium Level 4.0 3.6-5.0 MMOL/L Chloride Level 105 98-107 MMOL/L Carbon Dioxide Level 26 21-32 MMOL/L Anion Gap 8 5-14 MMOL/L Blood Urea Nitrogen 18 7-18 MG/DL Creatinine 0.83 0.60-1.30 MG/DL Estimat Glomerular Filtration Rate > 60 BUN/Creatinine Ratio 22 Glucose Level 83 70-105 MG/DL Calcium Level 9.3 8.5-10.1 MG/DL Total Bilirubin 0.8 0.1-1.0 MG/DL Aspartate Amino Transf (AST/SGOT) 33 5-34 U/L Alanine Aminotransferase (ALT/SGPT) 24 0-55 U/L Alkaline Phosphatase 68 40-136 U/L Troponin I < 0.30 <0.30 NG/ML Total Protein 6.8 6.4-8.2 GM/DL Albumin 3.9 3.2-4.5 GM/DL My Orders Orders - KVNG CHEEK MD Ekg Tracing (10/28/16 16:27) Chest 1 View, Ap/Pa Only (10/28/16 16:27) Cbc With Automated Diff (10/28/16 16:27) Comprehensive Metabolic Panel (10/28/16 16:27) Troponin I (10/28/16 16:27) Vital Signs/I&O Vital Sign - Last 12Hours 10/28/16 16:28 Temp 96.2 Pulse 69 Resp 18 B/P (MAP) 135/70 Pulse Ox 100 O2 Delivery Room Air Blood Pressure Mean: 91 Departure Communication Progress Notes Discussed the findings with Dr. Kevin. All of our measures were negative relative to myocardium. She instructed me to have the patient call her office in the morning to set up a cardiology appointment. Impression Impression: Primary Impression: Chest pain Disposition: 01 HOME, SELF-CARE Condition: Stable/Unchanged Departure-Patient Inst. Decision time for Depature: 17:51 Referrals: ESSIE KEVIN MD (PCP/Family) Primary Care Physician Patient Instructions: Chest Pain That Is Not Caused by the Heart (DC) Add. Discharge Instructions: All discharge instructions reviewed with patient and/or family. Voiced understanding. I discussed the findings here today with Dr. Kevin by phone. We agreed that that you should call her office in the morning to arrange a cardiology outpatient appointment. New If symptoms recur/increase return to emergency room. KVNG CHEEK MD Oct 28, 2016 17:25
[2016-10-28 18:08] VITALS: BP 104/61
== END 2016-10-28 18:08 | disposition home or self-care (01) ==
LOC: EDUNIT# 16:25 → ER 16:28
DX: R07.9 Chest pain, unspecified (principal); E03.9 Hypothyroidism, unspecified; Z79.899 Other long term (current) drug therapy; Z82.49 Family history of ischemic heart disease and other diseases of the circulatory system
CPT/HCPCS: 36415; 71010; 80053; 84484; 85025; 93005

== ENCOUNTER → 2016-10-29 | Day surgery (SDC) | payer BC ==
[~2016-10-29] VITALS: Ht 167.6 cm; Wt 68.0 kg
[~2016-10-29] MED LIST changes: +CATHETER FLUSH 10 ML SYR IV PRN; +FLUO20CA25; +HYDR-3812; +LEVO50TA6; +LORA1TAB; +MELO7.5T46; +NS IV 1000 ML 1,000 ML IV ONE; +OMEP20CA12; +ONDA4TAB10; +TRAM50TA2; +cefTRIAXone 1 GM/NS 50 ML IVPB IV ONE
--- OUTSIDE RECORDS SUMMARY | 2016-10-29 13:04 | XMS REPORT | Continuity of Care Document ---
Author Author [facility] Organization [facility] Address Unknown Phone Unavailable Care Team Providers Care Collection Advisor Name Role Phone Dorita Mary Grace Zuniga PCP [phone] Source Comments Some departments are not documenting in the electronic medical record. If you do not see the information that you expected, contact Release of Information in the Health Information Management department at [phone] for further assistance in locating additional records.[facility] Active Allergies and Adverse Reactions Allergen Noted [...] Taken Blood Pressure 121/77 04/02/2016 12:36 PM [employer]EF[employer]IST Pulse 86 04/02/2016 12:36 PM [employer]EF[employer]IST Temperature 36.9 C (98.5 F) 04/02/2016 12:36 PM [employer]EF[employer] SPECIALIST Respiratory Rate 16 04/02/2016 12:36 PM [employer]EF[employer]IST Height 1.676 m (5' 6") 04/02/2016 12:36 PM [employer]EF[employer] SPECIALIST Weight 67.314 kg (148 lb 6.4 oz) 04/02/2016 12:36 PM [employer]EF[employer]IST Body Mass Index 23.96 04/02/2016 12:36 PM [employer]EF[employer]IST Oxygen Saturation - - Plan of Care Health Maintenance Due Date Last Done Comments Hepatitis C Screening 1962 Physical (Comprehensive) 1969 Exam Pertussis Vaccine 1973 Tetanus Vaccine 1979 Cervical Cancer Screening 1983 Breast Cancer Screening 2002 Colorectal Cancer 2012 Screening Influenza Vaccine 12/17/2016 Results from Last 3 Months Not on file
--- OUTSIDE RECORDS SUMMARY | 2016-10-29 13:06 | XMS REPORT | Continuity of Care Document ---
Author Author [facility] Organization [facility] Address Unknown Phone Unavailable Allergies Active Description Code Type Severity Reaction Onset Reported/Identified Relationship to Patient Clinical Status Yes butorphanol [id number] Drug Allergy Mild N/A 04/11/2009 Yes celecoxib [id number] Drug Allergy Mild N/A 04/11/2009 Yes gabapentin [id number] Drug Allergy Unknown DIZZINESS 04/09/2015 Medications Problems [...] PHD , B T Ot 724.1 03/18/2014 KRISTINION PHD , B T Ot 724.2 03/18/2014 [...] 04/14/2014 Ot 793.80 04/14/2014 DORIS PEÑALOZA L CLINIC SPECIALIST Ot V76.12 04/14/2014 DORIS PEÑALOZA L CLINIC SPECIALIST Ot 536.8 04/14/2014 DORIS PEÑALOZA L CLINIC SPECIALIST Ot 789.00 04/14/2014 CINTHIA PRINCE DO Ot 625.9 04/14/2014 DORIS PEÑALOZA L CLINIC SPECIALIST Ot 562.10 04/14/2014 AUDREY PEÑALOZAIA L CLINIC SPECIALIST Ot 573.8 04/14/2014 AUDREY PEÑALOZAIA L CLINIC SPECIALIST Ot 592.0 04/14/2014 DORIS PEÑALOZA L CLINIC SPECIALIST Ot 724.5 04/14/2014 NICHELLE PEÑALOZARICIA L CLINIC SPECIALIST Ot 789.00 04/14/2014 CHAVA PEÑALOZA DO Ot 241.0 04/14/2014 CHAVA PEÑALOZA DO Ot V76.12 04/14/2014 DORIS PEÑALOZA L CLINIC SPECIALIST Ot 473.9 04/14/2014 DORIS PEÑALOZA L CLINIC SPECIALIST Ot 780.4 04/14/2014 DORIS PEÑALOZA L CLINIC SPECIALIST Ot 780.60 04/14/2014 DORIS PEÑALOZA L CLINIC SPECIALIST Ot 784.0 04/14/2014 DORIS PEÑALOZA CLINIC SPECIALIST Ot 721.0 04/14/2014 DORIS PEÑALOZA CLINIC SPECIALIST Ot 721.3 04/14/2014 DORIS PEÑALOZA CLINIC SPECIALIST Ot 724.01 04/14/2014 DORIS PEÑALOZA CLINIC SPECIALIST Ot 241.0 04/14/2014 QAMAR PHD , B [...] B T Ot V57.1 09/16/2014 DORIS PEÑALOZA CLINIC SPECIALIST Ot 240.9 09/16/2014 DORIS PEÑALOZA CLINIC SPECIALIST Ot 611.72 09/16/2014 DORIS PEÑALOZA CLINIC SPECIALIST Ot 276.51 09/16/2014 DORIS PEÑALOZA CLINIC SPECIALIST Ot 787.03 09/16/2014 DORIS PEÑALOZA CLINIC SPECIALIST Ot 276.51 09/16/2014 DORIS PEÑALOZA CLINIC SPECIALIST Ot 787.03 09/17/2014 DORIS PEÑALOZA CLINIC SPECIALIST Ot 240.9 09/17/2014 JHDORIS CLINIC SPECIALIST Ot 611.72 09/17/2014 JHDORIS CLINIC SPECIALIST Ot 276.51 09/17/2014 PEÑALOZADORIS CLINIC SPECIALIST Ot 787.03 10/01/2014 PEÑALOZADORIS CLINIC SPECIALIST Ot 240.9 10/01/2014 JHDORIS CLINIC SPECIALIST Ot 611.72 10/02/2014 JHDORIS CLINIC SPECIALIST Ot 276.51 10/02/2014 JHDORIS CLINIC SPECIALIST Ot 787.03 12/02/2014 ESTUARDO HOWARD, RON [place] Ot 722.51 12/02/2014 RON MARTE MD Ot 722.52 12/02/2014 RON MARTE MD Ot V58.69 12/26/2014 LARISSA MARTIN CLINIC SPECIALIST Ot 625.9 12/26/2014 LARISSA MARTIN CLINIC SPECIALIST Ot 789.00 02/17/2015 Ot 592.0 02/17/2015 Ot [...] 02/17/2015 Ot 610.0 02/17/2015 Ot 793.80 02/17/2015 JH DORIS Guanaco CLINIC SPECIALIST Ot V76.12 02/17/2015 JH DORIS Blanc CLINIC SPECIALIST Ot 536.8 02/17/2015 JH DORIS L CLINIC SPECIALIST Ot 789.00 02/17/2015 CINTHIA PRINCE DO Ot 625.9 02/17/2015 PEÑALOZA, DORIS L CLINIC SPECIALIST Ot 562.10 02/17/2015 PEÑALOZA, DORIS L CLINIC SPECIALIST Ot 573.8 02/17/2015 PEÑALOZA, DORIS L CLINIC SPECIALIST Ot 592.0 02/17/2015 PEÑALOZA, DORIS L CLINIC SPECIALIST Ot 724.5 02/17/2015 PEÑALOZA, DORIS L CLINIC SPECIALIST Ot 789.00 02/17/2015 CHAVA PEÑALOZA DO Ot 241.0 02/17/2015 CHAVA PEÑALOZA DO Ot V76.12 02/17/2015 NICHELLE PEÑALOZARICIA L CLINIC SPECIALIST Ot 473.9 02/17/2015 PEÑALOZA, DORIS L CLINIC SPECIALIST Ot 780.4 02/17/2015 JH DORIS L CLINIC SPECIALIST Ot 780.60 02/17/2015 PEÑALOZA, DORIS L CLINIC SPECIALIST Ot 784.0 02/17/2015 PEÑALOZA, DORIS L CLINIC SPECIALIST Ot 721.0 02/17/2015 PEÑALOZA, DORIS L CLINIC SPECIALIST Ot 721.3 02/17/2015 PEÑALOZA, DORIS L CLINIC SPECIALIST Ot 724.01 02/17/2015 PEÑALOZA, DORIS L CLINIC SPECIALIST Ot 241.0 02/17/2015 CHAVA PEÑALOZA DO Ot 786.50 02/17/2015 Ot 723.1 02/17/2015 Ot 724.1 02/17/2015 Ot 724.2 02/17/2015 Ot V57.1 02/17/2015 PEÑALOZA, DORIS L CLINIC SPECIALIST Ot 276.51 02/17/2015 PEÑALOZA, DORIS L CLINIC SPECIALIST Ot 787.03 02/17/2015 PEÑALOZA, DORIS L CLINIC SPECIALIST Ot 240.9 02/17/2015 PEÑALOZA, DORIS L CLINIC SPECIALIST Ot 611.72 02/17/2015 LARISSA MARTIN CLINIC SPECIALIST Ot 625.9 02/17/2015 LARISSA MARTIN CLINIC SPECIALIST Ot 789.00 02/17/2015 RON MARTE MD Ot M51.26 02/18/2015 RON MARTE MD Ot M51.26 04/09/2015 Ot 723.1 04/09/2015 Ot 724.1 04/09/2015 Ot 724.2 04/09/2015 Ot V57.1 04/09/2015 MARLEN MOTLEY CLINIC SPECIALIST Ot Z01.89 04/09/2015 MARLEN MOTLEY CLINIC SPECIALIST Ot Z80.42 04/14/2015 Ot 721.3 04/14/2015 Ot [...] 04/14/2015 Ot 793.80 04/14/2015 DORIS PEÑALOZA L CLINIC SPECIALIST Ot V76.12 04/14/2015 DORIS PEÑALOZA L CLINIC SPECIALIST Ot 536.8 04/14/2015 DORIS PEÑALOZA L CLINIC SPECIALIST Ot 789.00 04/14/2015 CINTHIA PRINCE DO Ot 625.9 04/14/2015 DORIS PEÑALOZA L CLINIC SPECIALIST Ot 562.10 04/14/2015 DORIS PEÑALOZA L CLINIC SPECIALIST Ot 573.8 04/14/2015 DORIS PEÑALOZA L CLINIC SPECIALIST Ot 592.0 04/14/2015 DORIS PEÑALOZA L CLINIC SPECIALIST Ot 724.5 04/14/2015 DORIS PEÑALOZA L CLINIC SPECIALIST Ot 789.00 04/14/2015 CHAVA PEÑALOZA DO Ot 241.0 04/14/2015 CHAVA PEÑALOZA DO Ot V76.12 04/14/2015 DORIS PEÑALOZA CLINIC SPECIALIST Ot 473.9 04/14/2015 DORIS PEÑALOZA CLINIC SPECIALIST Ot 780.4 04/14/2015 DORIS PEÑALOZA CLINIC SPECIALIST Ot 780.60 04/14/2015 DORIS PEÑALOZA CLINIC SPECIALIST Ot 784.0 04/14/2015 DORIS PEÑALOZA CLINIC SPECIALIST Ot 721.0 04/14/2015 DORIS PEÑALOZA CLINIC SPECIALIST Ot 721.3 04/14/2015 DORIS PEÑALOZA CLINIC SPECIALIST Ot 724.01 04/14/2015 DORIS PEÑALOZA CLINIC SPECIALIST Ot 241.0 04/14/2015 CHAVA PEÑALOZA DO Ot 786.50 04/14/2015 Ot 723.1 04/14/2015 Ot 724.1 04/14/2015 Ot 724.2 04/14/2015 Ot V57.1 04/14/2015 DORIS PEÑALOZA CLINIC SPECIALIST Ot 276.51 04/14/2015 DORIS PEÑALOZA CLINIC SPECIALIST Ot 787.03 04/14/2015 DORIS PEÑALOZA CLINIC SPECIALIST Ot 240.9 04/14/2015 DORIS PEÑALOZA CLINIC SPECIALIST Ot 611.72 04/14/2015 LARISSA MARTIN CLINIC SPECIALIST Ot 625.9 04/14/2015 LARISSA MARTIN CLINIC SPECIALIST Ot 789.00 04/14/2015 ESTUARDO HOWARD, RON [place] Ot M51.26 04/14/2015 MARLEN MOTLEY CLINIC SPECIALIST Ot Z01.89 04/14/2015 MARLEN MOTLEY CLINIC SPECIALIST Ot Z80.42 04/14/2015 IAN HOWARD, KAY Gallardo Ot Z01.818 04/14/2015 IAN HOWARD, KAY Gallardo Ot K57.90 04/14/2015 IAN HOWARD, KAY Gallardo Ot Z09 04/14/2015 IAN HOWARD, KAY Gallardo Ot Z12.11 04/14/2015 IAN HOWARD, KAY Gallardo Ot Z86.010 04/14/2015 IAN HOWARD, KAY Gallardo Ot Z01.818 05/15/2015 MARLEN MOTLEY CLINIC SPECIALIST Ot Z14.8 05/15/2015 MARLEN MOTLEY CLINIC SPECIALIST Ot Z80.0 05/19/2015 TARYN TOLBERT RESPOOLER Ot Z15.01 05/21/2015 TARYN TOLBERT RESPOOLER Ot Z15.01 05/29/2015 TARYN TOLBERT RESPOOLER Ot Z15.01 06/05/2015 FRANCISCO VILLATORO CLINIC SPECIALIST Ot Z15.01 06/05/2015 TARYN TOLBERT RESPOOLER Ot Z15.01 06/10/2015 PARTHA SNIDER RESPOOLER Ot R53.1 06/10/2015 PARTHA SNIDER RESPOOLER Ot R53.83 06/10/2015 FRANCISCO VILLATORO CLINIC SPECIALIST Ot Z15.01 06/10/2015 MARLEN MOTLEY CLINIC SPECIALIST Ot Z14.8 06/10/2015 MARLEN MOTLEY CLINIC SPECIALIST Ot Z80.0 06/10/2015 TARYN TOLBERT RESPOOLER Ot Z15.01 06/10/2015 Ot 721.3 06/10/2015 Ot [...] 610.0 06/10/2015 Ot 793.80 06/10/2015 DORIS PEÑALOZA CLINIC SPECIALIST Ot V76.12 06/10/2015 DORIS PEÑALOZA CLINIC SPECIALIST Ot 536.8 06/10/2015 PEÑALOZA, DORIS L CLINIC SPECIALIST Ot 789.00 06/10/2015 CINTHIA PRINCE DO Ot 625.9 06/10/2015 NICHELLE PEÑALOZARICIA L CLINIC SPECIALIST Ot 562.10 06/10/2015 PEÑALOZA, DORIS L CLINIC SPECIALIST Ot 573.8 06/10/2015 PEÑALOZA, DORIS L CLINIC SPECIALIST Ot 592.0 06/10/2015 PEÑALOZA, DORIS L CLINIC SPECIALIST Ot 724.5 06/10/2015 PEÑALOZA, DORIS L CLINIC SPECIALIST Ot 789.00 06/10/2015 CHAVA PEÑALOZA DO Ot 241.0 06/10/2015 CHAVA PEÑALOZA DO Ot V76.12 06/10/2015 NICHELLE PEÑALOZARICIA L CLINIC SPECIALIST Ot 473.9 06/10/2015 JH DORIS L CLINIC SPECIALIST Ot 780.4 06/10/2015 JH DORIS L CLINIC SPECIALIST Ot 780.60 06/10/2015 JH DORIS L CLINIC SPECIALIST Ot 784.0 06/10/2015 JH DORIS L CLINIC SPECIALIST Ot 721.0 06/10/2015 PEÑALOZA, DORIS L CLINIC SPECIALIST Ot 721.3 06/10/2015 JH DORIS L CLINIC SPECIALIST Ot 724.01 06/10/2015 PEÑALOZA, DORIS L CLINIC SPECIALIST Ot 241.0 06/10/2015 CHAVA PEÑALOZA DO Ot 786.50 06/10/2015 Ot 723.1 06/10/2015 Ot 724.1 06/10/2015 Ot 724.2 06/10/2015 Ot V57.1 06/10/2015 JH DORIS L CLINIC SPECIALIST Ot 276.51 06/10/2015 PEÑALOZA, DORIS L CLINIC SPECIALIST Ot 787.03 06/10/2015 JH DORIS L CLINIC SPECIALIST Ot 240.9 06/10/2015 PEÑALOZA, DORIS L CLINIC SPECIALIST Ot 611.72 06/10/2015 LARISSA MARTIN CLINIC SPECIALIST Ot 625.9 06/10/2015 LARISSA MARTIN CLINIC SPECIALIST Ot 789.00 06/10/2015 RON MARTE MD Ot M51.26 06/10/2015 MOTLEYMARLEN Avina CLINIC SPECIALIST Ot Z01.89 06/10/2015 MOTLEYMARLEN Avina CLINIC SPECIALIST Ot Z80.42 06/10/2015 IAN HOWARD, KAY M Ot Z01.818 06/10/2015 MOTLEYMARLEN Avina CLINIC SPECIALIST Ot Z14.8 06/10/2015 MOTLEYMARLEN Avina CLINIC SPECIALIST Ot Z80.0 06/10/2015 TARYN TOLBERT RESPOOLER Ot Z15.01 06/10/2015 FRANCISCO VILLATORO CLINIC SPECIALIST Ot Z15.01 06/10/2015 PARTHA SNIDER RESPOOLER Ot R53.1 06/10/2015 PARTHA SNIDER RESPOOLER Ot R53.83 06/16/2015 PARTHA SNIDER RESPOOLER Ot R53.1 06/16/2015 PARTHA SNIDER RESPOOLER Ot R53.83 07/28/2015 NICHOLE FERRARI RESPOOLER Ot E03.9 07/28/2015 NICHOLE FERRARI RESPOOLER Ot M19.90 07/28/2015 NICHOLE FERRARI RESPOOLER Ot Z15.02 07/28/2015 NICHOLE FERRARI RESPOOLER Ot Z86.19 07/31/2015 PARTHA SNIDER RESPOOLER Ot R53.1 07/31/2015 PARTHA SNIDER RESPOOLER Ot R53.83 07/31/2015 TARYN TOLBERT RESPOOLER Ot Z15.01 07/31/2015 FRANCISCO VILLATORO CLINIC SPECIALIST Ot Z15.01 07/31/2015 CLYDE MOTLEYNELSON Fabrice CLINIC SPECIALIST Ot Z14.8 07/31/2015 MOTLEY MARLEN Fabrice CLINIC SPECIALIST Ot Z80.0 08/06/2015 NICHOLE FERRARI RESPOOLER Ot E03.9 HYPOTHYROIDISM, UNSPECIFIED 08/06/2015 NICHOLE FERRARI RESPOOLER Ot M19.90 UNSPECIFIED OSTEOARTHRITIS, UNSPECIFIED 08/06/2015 NICHOLE FERRARI RESPOOLER Ot 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 08/06/2015 NICHOLE FERRARI RESPOOLER Ot Z86.19 PERSONAL HISTORY OF OTHER INFECTIOUS AND 08/07/2015 NICHOLE FERRARI RESPOOLER Ot E03.9 HYPOTHYROIDISM, UNSPECIFIED 08/07/2015 NICHOLE FERRARI RESPOOLER Ot M19.90 UNSPECIFIED OSTEOARTHRITIS, UNSPECIFIED 08/07/2015 NICHOLE FERRARI RESPOOLER Ot 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 08/07/2015 NICHOLE FERRARI RESPOOLER Ot Z86.19 PERSONAL HISTORY OF OTHER INFECTIOUS AND 10/13/2015 FRANCISCO VILLATORO CLINIC SPECIALIST Ot 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 10/13/2015 FRANCISCO VILLATORO CLINIC SPECIALIST Ot K76.89 OTHER SPECIFIED DISEASES OF LIVER 10/13/2015 FRANCISCO VILLATORO CLINIC SPECIALIST Ot M47.22 OTHER SPONDYLOSIS WITH RADICULOPATHY , CE 10/13/2015 FRANCISCO VILLATORO CLINIC SPECIALIST Ot M54.2 CERVICALGIA 10/13/2015 FRANCISCO VILLATORO CLINIC SPECIALIST Ot M54.5 LOW BACK PAIN 10/13/2015 FRANCISCO VILLATORO CLINIC SPECIALIST Ot N20.0 CALCULUS OF KIDNEY 10/13/2015 FRANCISCO VILLATORO CLINIC SPECIALIST Ot 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 10/13/2015 FRANCISCO VILLATORO CLINIC SPECIALIST Ot Z80.0 FAMILY HISTORY OF MALIGNANT NEOPLASM OF 10/17/2015 FRANCISCO VILLATORO CLINIC SPECIALIST Ot 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 10/17/2015 FRANCISCO VILLATORO CLINIC SPECIALIST Ot K76.89 OTHER SPECIFIED DISEASES OF LIVER 10/17/2015 FRANCISCO VILLATORO CLINIC SPECIALIST Ot M47.22 OTHER SPONDYLOSIS WITH RADICULOPATHY , CE 10/17/2015 FRANCISCO VILLATORO CLINIC SPECIALIST Ot M54.2 CERVICALGIA 10/17/2015 FRANCISCO VILLATORO CLINIC SPECIALIST Ot M54.5 LOW BACK PAIN 10/17/2015 FRANCISCO VILLATORO CLINIC SPECIALIST Ot N20.0 CALCULUS OF KIDNEY 10/17/2015 FRANCISCO VILLATORO CLINIC SPECIALIST Ot 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 10/17/2015 FRANCISCO VILLATORO CLINIC SPECIALIST Ot Z80.0 FAMILY HISTORY OF MALIGNANT NEOPLASM OF 10/19/2015 FRANCISCO VILLATORO CLINIC SPECIALIST Ot 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 10/19/2015 IRVINGFRANCISCO CLINIC SPECIALIST Ot K76.89 OTHER SPECIFIED DISEASES OF LIVER 10/19/2015 IRVINGOSCARARJUN Gallardo CLINIC SPECIALIST Ot M47.22 OTHER SPONDYLOSIS WITH RADICULOPATHY , CE 10/19/2015 IRVINGFRANCISCO Paulina CLINIC SPECIALIST Ot M54.2 CERVICALGIA 10/19/2015 IRVINGOSCARARJUN Gallardo CLINIC SPECIALIST Ot M54.5 LOW BACK PAIN 10/19/2015 IRVING FRANCISCO M CLINIC SPECIALIST Ot N20.0 CALCULUS OF KIDNEY 10/19/2015 IRVINGOSCARARJUN Gallardo CLINIC SPECIALIST Ot 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 10/19/2015 IRVING FRANCISCO M CLINIC SPECIALIST Ot Z80.0 FAMILY HISTORY OF MALIGNANT NEOPLASM OF 10/23/2015 MEE VILLATOROHANARJUN Gallardo CLINIC SPECIALIST Ot 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 10/23/2015 FRANCISCO VILLATORO CLINIC SPECIALIST Ot K76.89 OTHER SPECIFIED DISEASES OF LIVER 10/23/2015 IRVING FRANCISCO M CLINIC SPECIALIST Ot M47.22 OTHER SPONDYLOSIS WITH RADICULOPATHY , CE 10/23/2015 IRVING FRANCISCO M CLINIC SPECIALIST Ot M54.2 CERVICALGIA 10/23/2015 IRVING FRANCISCO M CLINIC SPECIALIST Ot M54.5 LOW BACK PAIN 10/23/2015 FRANCISCO VILLATORO CLINIC SPECIALIST Ot N20.0 CALCULUS OF KIDNEY 10/23/2015 IRVING FRANCISCO M CLINIC SPECIALIST Ot 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0 CALCULUS OF KIDNEY 11/07/2015 FRANCISCO VILLATORO [facility] Ot 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 11/07/2015 FRANCISCO VILLATORO [facility] Ot Z80.0 FAMILY HISTORY OF MALIGNANT NEOPLASM OF Procedures Results Test Result Range Complete blood count (CBC) with automated white blood cell (WBC) differential - 10/28/16 16:34 Blood leukocytes automated count (number/volume) 9.7 10*3/ uL 4.3-11.0 Blood erythrocytes automated count (number/volume) 4.44 10*6 /uL 4.35-5.85 Venous blood hemoglobin measurement (mass/volume) 12.8 g/dL 11.5-16.0 Blood hematocrit (volume fraction) 39 % 35-52 Automated erythrocyte mean corpuscular volume 87 [foz_us] 80-99 Automated erythrocyte mean corpuscular hemoglobin (mass per erythrocyte) 29 pg 25-34 Automated erythrocyte mean corpuscular hemoglobin concentration measurement ( mass/volume) 33 g/dL 32-36 Automated erythrocyte distribution width ratio 13.1 % 10.0-14.5 Automated blood platelet count (count/volume) 271 10*3/uL 130-400 Automated blood platelet mean volume measurement 9.8 [foz_us ] 7.4-10.4 Automated blood neutrophils/100 leukocytes 54 % 42-75 Automated blood lymphocytes/100 leukocytes 34 % 12-44 Blood monocytes/100 leukocytes 9 % 0-12 Automated blood eosinophils/100 leukocytes 3 % 0-10 Automated blood basophils/100 leukocytes 0 % 0-10 Blood neutrophils automated count (number/volume) 5.2 10*3 1.8-7.8 Blood lymphocytes automated count (number/volume) 3.3 10*3 1.0-4.0 Blood monocytes automated count (number/volume) 0.9 10*3 0.0-1.0 Automated eosinophil count 0.3 10*3/uL 0.0-0.3 Automated blood basophil count (count/volume) 0.0 10*3/uL 0.0-0.1 Comprehensive metabolic panel - 10/28/16 16:34 Serum or plasma sodium measurement (moles/volume) 139 mmol/ L 135-145 Serum or plasma potassium measurement (moles/volume) 4.0 mmol/L 3.6-5.0 Serum or plasma chloride measurement (moles/volume) 105 mmol /L 98-107 Carbon dioxide 26 mmol/L 21-32 Serum or plasma anion gap determination (moles/volume) 8 mmol/L 5-14 Serum or plasma urea nitrogen measurement (mass/volume) 18 mg/dL 7-18 Serum or plasma creatinine measurement (mass/volume) 0.83 mg /dL 0.60-1.30 Serum or plasma urea nitrogen/creatinine mass ratio 22 NRG Serum or plasma creatinine measurement with calculation of estimated glomerular filtration rate > NRG Serum or plasma glucose measurement (mass/volume) 83 mg/dL 70-105 Serum or plasma calcium measurement (mass/volume) 9.3 mg/dL 8.5-10.1 Serum or plasma total bilirubin measurement (mass/volume) 0.8 mg/dL 0.1-1.0 Serum or plasma alkaline phosphatase measurement (enzymatic activity/volume) 68 U/L 40-136 Serum or plasma aspartate aminotransferase measurement (enzymatic activity/ volume) 33 U/L 5-34 Serum or plasma alanine aminotransferase measurement (enzymatic activity/volume ) 24 U/L 0-55 Serum or plasma protein measurement (mass/volume) 6.8 g/dL 6.4-8.2 Serum or plasma albumin measurement (mass/volume) 3.9 g/dL 3.2-4.5 Serum or plasma troponin i.cardiac measurement (mass/volume) - 10/28/16 16:34 Serum or plasma troponin i.cardiac measurement (mass/volume) < ng/mL <0.30 Encounters ACCT No. Visit Date/Time Discharge Status Pt. Type Provider Facility Loc./Unit Complaint [id number] 04/14/2015 09:11:00 2014 12:05:00 DIS Outpatient KAY SOSA MD [facility] [id number] 02/05/2015 08:14:00 2014 23:59:59 CLS Outpatient RON MARTE MD [facility] RAD [id number] 12/12/2014 09:41:00 2014 23:59:59 CLS Outpatient LARISSA MARTIN [facility] RAD [id number] 12/02/2014 13:48:00 2014 15:31:00 DIS Outpatient RON MARTE MD [facility] CARD [id number] 09/06/2014 07:35:00 2014 23:59:59 CLS Outpatient PEÑALOZA, DORIS L CLINIC SPECIALIST [facility] RAD [id number] 08/21/2014 11:15:00 2014 23:59:59 CLS Outpatient PEÑALOZA DORIS L CLINIC SPECIALIST [facility] [id number] 06/04/2014 13:02:00 2014 23:59:59 CLS Outpatient QAMAR RODRIGUES MD, Peña Gutierrez [facility] REHAB [id number] 05/24/2014 07:06:00 2014 08:03:00 DIS Outpatient RON MARTE MD [facility] CARD [id number] 05/03/2014 08:51:00 2014 10:02:00 DIS Outpatient RON MARTE MD [facility] CARD [id number] 04/16/2014 07:16:00 2013 23:59:59 CLS Outpatient CHAVA PEÑALOZA DO [facility] CARD [id number] 04/14/2014 15:52:00 2013 17:30:00 DIS Emergency JAREN HOUSTON MD [facility] ER [id number] 02/05/2014 11:11:00 2013 23:59:59 CLS Outpatient PEÑALOZA DORIS L CLINIC SPECIALIST [facility] RAD [id number] 01/31/2014 15:06:00 2013 23:59:59 CLS Outpatient PEÑALOZA, DORIS L CLINIC SPECIALIST [facility] RAD [id number] 12/05/2013 11:45:00 2013 23:59:59 CLS Outpatient PEÑALOZA, DORIS L CLINIC SPECIALIST [facility] RAD [id number] 08/31/2013 10:20:00 2013 23:59:59 CLS Outpatient CHAVA PEÑALOZA DO [facility] RAD [id number] 07/17/2013 09:33:00 2013 23:59:59 CLS Outpatient DORIS PEÑALOZA CLINIC SPECIALIST [facility] RAD [id number] 11/15/2012 14:59:00 2012 23:59:59 CLS Outpatient CINTHIA PRINCE DO [facility] RAD [id number] 10/13/2012 09:53:00 2012 23:59:59 CLS Outpatient DORIS PEÑALOZA CLINIC SPECIALIST [facility] RAD [id number] 08/17/2012 15:30:00 2012 23:59:59 CLS Outpatient DORIS PEÑALOZA CLINIC SPECIALIST [facility] RAD [id number] 10/28/2016 16:47:00 Document Registration [id number] 10/13/2015 15:07:00 ACT Outpatient FRANCISCO VILLATORO CLINIC SPECIALIST [facility] RAD [id number] 10/10/2015 13:43:00 ACT Outpatient FRANCISCO VILLATORO CLINIC SPECIALIST [facility] RAD [id number] 07/25/2015 12:40:00 ACT Outpatient NICHOLE FERRARI RESPOOLER [facility] RAD [id number] 05/30/2015 10:30:00 ACT Outpatient PARTHA SNIDER RESPOOLER [facility] CARD [id number] 05/19/2015 13:50:00 ACT Outpatient FRANCISCO VILLATORO CLINIC SPECIALIST [facility] RAD [id number] 05/14/2015 10:33:00 ACT Outpatient TARYN TOLBERT RESPOOLER [facility] RAD [id number] 04/23/2015 14:36:00 ACT Outpatient MARLEN MOTLEY CLINIC SPECIALIST [facility] ONC [id number] 04/09/2015 06:09:00 ACT Outpatient KAY SOSA MD [facility] PREOP [id number] 03/25/2015 13:47:00 ACT Outpatient MARLEN MOTLEY CLINIC SPECIALIST [facility] ONC [id number] 06/05/2014 00:11:00 Document Registration [id number] 04/14/2014 15:53:00 Document Registration [id number] 04/14/2014 15:53:00 Document Registration [id number] 04/14/2014 15:52:00 Document Registration [id number] 09/06/2011 15:01:00 Document Registration [id number] 06/14/2011 07:20:00 Document Registration [id number] 04/07/2011 08:02:00 Document Registration [id number] 03/29/2011 10:52:00 Document Registration [id number] 10/26/2010 13:41:00 Document Registration [id number] 08/18/2010 14:43:00 Document Registration [id number] 08/18/2010 14:16:00 Document Registration [id number] 08/03/2010 13:37:00 Document Registration [id number] 07/03/2010 05:43:00 Document Registration [id number] 06/25/2010 12:59:00 Document Registration [id number] 05/26/2010 09:40:00 Document Registration [id number] 05/11/2010 23:31:00 Document Registration [id number] 03/11/2010 09:28:00 Document Registration [id number] 10/01/2009 14:18:00 Document Registration [id number] 09/12/2009 08:21:00 Document Registration [id number] 09/08/2009 12:34:00 Document Registration [id number] 04/23/2009 09:58:00 Document Registration [id number] 02/26/2009 13:57:00 Document Registration [id number] 10/23/2008 09:47:00 Document Registration
[2016-10-29 14:55] VITALS: BP 113/75
== END | disposition home or self-care (01) ==
LOC: SDC 12:59
PROVIDERS: ATTEND Nurse Practitioner Family
DX: R11.2 Nausea with vomiting, unspecified (principal); E86.0 Dehydration
CPT/HCPCS: 96360; 96365; 99211

== ENCOUNTER → 2016-11-12 | Outpatient (CLI) | payer BC ==
[~2016-11-12] MED LIST changes: -CATHETER FLUSH 10 ML SYR IV PRN; -NS IV 1000 ML 1,000 ML IV ONE; -cefTRIAXone 1 GM/NS 50 ML IVPB IV ONE
--- NOTE | 2016-11-12 10:09 | Diagnostic Imaging Report ---
PROCEDURE: CT abdomen and pelvis without contrast. TECHNIQUE: Multiple contiguous axial images were obtained through the abdomen and pelvis without the use of intravenous contrast. INDICATION: Chronic bladder pain. Hematuria. FINDINGS: The lung bases appear clear. The liver, the gallbladder, the spleen, the pancreas and the adrenal glands appear unremarkable for an unenhanced exam. Previously seen hypodense lesion in the posterior aspect of the right hepatic lobe is not identified on the current exam. The kidneys demonstrate no stones or hydronephrosis. The urinary bladder appears unremarkable. The colon demonstrates scattered diverticulosis. No diverticulitis. There is no bowel obstruction. The abdominal aorta is normal in caliber. No para-aortic significantly enlarged lymph nodes are seen. No significant free fluid or fluid collection in the abdomen or pelvis identified. Post hysterectomy change is seen. The osseous structures demonstrate degenerative changes in the lower lumbar spine. IMPRESSION: 1. No urinary tract stones or hydronephrosis. 2. Mild colonic diverticulosis. No diverticulitis. 3. Previously seen hypodense lesion in the posterior aspect of the right hepatic lobe is not identified on the current exam. Contrast enhanced study or ultrasound can better evaluate the liver parenchyma. Dictated by: Dictated on workstation # [id number]
== END ==
LOC: RAD 08:22
PROVIDERS: ATTEND Urology
DX: K76.9 Liver disease, unspecified (principal); R31.9 Hematuria, unspecified; Z90.710 Acquired absence of both cervix and uterus; Z87.442 Personal history of urinary calculi
CPT/HCPCS: 74176

== ENCOUNTER → 2016-12-06 | Outpatient (CLI) | payer BC ==
--- NOTE | 2016-12-06 09:12 | Diagnostic Imaging Report ---
PROCEDURE: MR imaging cervical spine without contrast. TECHNIQUE: Multiplanar, multisequence MR imaging of the cervical spine was performed without contrast. INDICATION: Cervical spondylosis with pain Comparison is made to the study of 10/13/2015. Similar to the previous study, cervical vertebral body heights are maintained. There is diffuse desiccation of cervical disc. There is mild annular bulging of the C3-4 disc without significant spinal or neural foraminal stenosis. At C4-5 level, there is diffuse disc bulging and endplate spurring which is greater on the right. This does result in moderate right neural foraminal stenosis. At C5-6, there is no central protrusion with only mild annular disc bulging and endplate spurring. At the C6-7 level, there is a minimal central disc protrusion without significant spinal or neural foraminal stenosis. Cervical spinal cord signal intensities are unremarkable. Overall, there is no evidence of adverse change. IMPRESSION: Mild cervical spondylosis with degenerative disc disease resulting in moderate right neural foraminal stenosis at C5-6. This has not significantly changed from the previous study. There is no evidence of central spinal stenosis or other adverse change. Dictated by: Dictated on workstation # [id number]
--- NOTE | 2016-12-06 09:37 | Diagnostic Imaging Report ---
CLINICAL INDICATION: Patient with history of chronic neck and back pain. EXAM: MRI of the lumbar spine performed without IV contrast. Sequences include sagittal T2, sagittal T1, sagittal T2 fat-sat, and axial T2. COMPARISON: MRI of lumbar spine without contrast dated 10/13/2015. FINDINGS: There is no acute lumbar spine fracture. There is Modic type I degenerative signal changes involving the L3-L4 and L5-S1 endplates which has slightly progressed compared to the prior study. Otherwise, the lumbar vertebral body signal is within normal limits. There is no significant paraspinal soft tissue abnormality. The visualized portions of distal thoracic spinal cord, conus medullaris, and cauda equina nerve roots show no significant abnormality. Conus medullaris tip is seen at the upper L2 vertebral body level. There are hypertrophic vertebral body spurs seen throughout the lumbar spine. There is lower lumbar spine facet arthropathy. L1-L2: Stable mild diffuse disc bulge with small chronic Schmorl's nodes involving endplates. There is no significant central spinal canal or neural foramen narrowing. L2-L3: Stable grade 1 retrolisthesis of L2 on L3. There is again seen diffuse disc bulge with increased size of the left paracentral/foraminal disc extrusion/herniation component. There is now severe left neural foramen narrowing which has progressed. There is mild to moderate central canal narrowing which has progressed. There is moderate right neural foramen narrowing which has progressed. There is moderate loss of intervertebral disc height again seen. L3-L4: Stable diffuse disc bulge with small disc spurs in the left foraminal region and small disc extrusion/herniation extending into the right foraminal region. There is a small annular tear involving the disc anteriorly. There are stable moderate loss of intervertebral disc height. There is stable bilateral facet arthropathy and mild ligament flavum buckling. Stable mild central canal narrowing, moderate right neural foramen narrowing and severe left neural foramen narrowing. L4-L5: Stable mild diffuse disc bulge with small disc extrusion/herniation extending to the right foraminal/extraforaminal region. Stable moderate to severe right neural foramen narrowing and mild to moderate left neural foramen narrowing. There is mild central canal narrowing. L5-S1: Stable grade 1 retrolisthesis of L5 on S1. There is a diffuse disc bulge with severe loss in disc height. There is hypertrophic disc spurs extending posteriorly and into the foraminal regions bilaterally. There is no significant central canal narrowing. There are stable severe bilateral neural foramen narrowing. IMPRESSION: 1: There is interval progression of severe disc disease at the L2-L3 level. 2: Otherwise, the remainder of the multilevel lumbar spine degenerative disease has not significantly changed in the interim. 3: Stable grade 1 retrolisthesis of L2 on L3 and L5 on S1. Dictated by: Dictated on workstation # [id number]
== END ==
LOC: RAD 08:10
PROVIDERS: ATTEND Nurse Practitioner Family
DX: M47.812 Spondylosis without myelopathy or radiculopathy, cervical region (principal); M47.816 Spondylosis without myelopathy or radiculopathy, lumbar region; M48.02 Spinal stenosis, cervical region; M51.36 Other intervertebral disc degeneration, lumbar region; M50.322 Other cervical disc degeneration at C5-C6 level; M43.16 Spondylolisthesis, lumbar region
CPT/HCPCS: 72141; 72148

== ENCOUNTER → 2018-10-12 | Outpatient (CLI) | payer BC ==
[~2018-10-12] MED LIST changes: +ACHD5005; -HYDR-3812
[2018-10-12 09:43] LABS: BUN/CREATININE RATIO 18; CREATININE SERUM 0.84 MG/DL (0.60-1.30); GFR ESTIMATED > 60
== END ==
LOC: LAB 09:14
PROVIDERS: ATTEND Nurse Practitioner Family
DX: R10.9 Unspecified abdominal pain (principal); Z85.3 Personal history of malignant neoplasm of breast; Z80.0 Family history of malignant neoplasm of digestive organs
CPT/HCPCS: 36415; 82565; 84520; 86301

== ENCOUNTER → 2018-10-13 | Outpatient (CLI) | payer BC ==
--- NOTE | 2018-10-13 14:34 | Diagnostic Imaging Report ---
PROCEDURE: CT abdomen and pelvis with and without contrast. TECHNIQUE: Precontrast acquisitions were acquired through the abdomen and pelvis. Multiple contiguous axial images were obtained through the abdomen and pelvis after the administration of intravenous contrast. Auto Exposure Controls were utilized during the CT exam to meet ALARA standards for radiation dose reduction. INDICATION: Family history of pancreatic cancer, this patient is BRCA2 positive. Has had previous bilateral mastectomy and hysterectomy. COMPARISON: The study compared with nonenhanced abdominopelvic CT performed on 11/12/2016. FINDINGS: The lung bases were unremarkable. Liver parenchyma appeared unremarkable. The gallbladder and bile ducts are negative. The spleen, adrenals, and pancreas appeared normal. The pancreatic duct showed no irregularity. There was no acute fluid collection. No pancreatic mass or atrophy. Uterus is absent. There is no adnexal lesion. The urinary bladder is unremarkable. The urinary tracts are unobstructed, nonfocal, and nonacute. There is no abdominopelvic mesenteric or retroperitoneal lymphadenopathy. There is no ascites, abscess, hematoma, or fluid collection. No pneumatosis or free gas. The osseous structures of the abdomen and pelvis appeared nonacute. IMPRESSION: No findings to suggest primary or secondary malignancy. No obstructive phenomenon, inflammatory process, third space fluids, or acute abnormalities. Dictated by: Dictated on workstation # [id number]
== END ==
LOC: RAD 08:02
PROVIDERS: ATTEND Nurse Practitioner Family
DX: C50.919 Malignant neoplasm of unspecified site of unspecified female breast (principal); R10.9 Unspecified abdominal pain; Z17.0 Estrogen receptor positive status [ER+]; Z90.13 Acquired absence of bilateral breasts and nipples; Z90.710 Acquired absence of both cervix and uterus; Z80.0 Family history of malignant neoplasm of digestive organs
CPT/HCPCS: 74178

== ENCOUNTER → 2020-03-25 | Outpatient (CLI) | payer BC ==
[~2020-03-25] MED LIST changes: -FLUO20CA25; +FLUO20CA46; -OMEP20CA12; +OMEP20CA18; +ONDA-105; -ONDA4TAB10; -TRAM50TA2; +TRM50T
== END ==
LOC: LABNPT 08:40
PROVIDERS: ATTEND Internal Medicine Gastroenterology
DX: Z20.828 Contact with and (suspected) exposure to other viral communicable diseases (principal)
CPT/HCPCS: 87635

== ENCOUNTER → 2020-08-25 | Outpatient (CLI) | payer OTHER ==
--- NOTE | 2020-08-25 10:44 | Diagnostic Imaging Report ---
PROCEDURE: US Gallbladder. TECHNIQUE: Multiple Real-time grayscale images were obtained over the right upper quadrant in various projections. INDICATION: Right upper quadrant pain. FINDINGS: The liver is 13 cm in size. The previously noted liver cyst is not appreciated on today's exam. No liver mass is identified. The portal vein is patent and shows normal direction of flow. The gallbladder is without stones or sludge. No wall thickening or biliary ductal dilatation is seen. The pancreas is unremarkable. The aorta is nonaneurysmal. The IVC is patent. The right kidney is without calculus or hydronephrosis. There is no ascites. IMPRESSION: Unremarkable gallbladder ultrasound. Dictated by: Dictated on workstation # [id number]
== END ==
LOC: RAD 09:32
PROVIDERS: ATTEND Nurse Practitioner Family
DX: R10.11 Right upper quadrant pain (principal)
CPT/HCPCS: 76705

== ENCOUNTER → 2020-11-06 | Outpatient (CLI) | payer OTHER ==
--- NOTE | 2020-11-06 11:01 | Diagnostic Imaging Report ---
CLINICAL INDICATION: Patient with low back pain. No known injury. EXAM: MRI of the lumbar spine performed without IV contrast. Sequences include sagittal T2, sagittal T1, sagittal T2 fat-sat, and axial T2. COMPARISON: MRI of the lumbar spine without contrast dated 12/06/2016. FINDINGS: There is interval progression of dextroscoliosis of the lumbar spine with apex at the L2-L3 level. There is no acute lumbar spine fracture. There is resolution of Modic type I degenerative signal changes at the L5-S1 level with now Modic type II degenerative signal changes. There is Modic type I degenerative signal changes involving the L2-L3 which has slightly progressed. There is slight decrease in the previously seen Modic type I degenerative signal changes involving the L3-L4 level. There are hypertrophic spurs and facet arthropathy again noted which is slightly progressed. The visualized portions of the distal thoracic spinal cord, conus medullaris, and cauda equina nerve roots are unremarkable. The conus medullaris tip is seen at the upper L2 vertebral body level. There is no significant paraspinal soft tissue abnormality. L1-L2: There is interval progression of a mild diffuse disk bulge with mild loss of disk space height which has progressed. There is no significant central canal or neural foramen narrowing. L2-L3: There is interval progression of grade 1 retrolisthesis of L2 on L3 which is now 3 mm compared to prior study at 2 mm. There is significant progression of diffuse disk bulge with severe loss of disk space height and endplate irregularity. There is progression of far left lateral disk spurs which extend into the foraminal regions bilaterally. There is moderate left facet arthropathy/hypertrophy and mild right facet arthropathy which has progressed. There is moderate central canal stenosis which has progressed. There is moderate right neural foramen narrowing and severe left neural foramen narrowing which has slightly progressed. L3-L4: Stable subtle grade 1 retrolisthesis of L3 on L4. There is progression of a diffuse disk bulge with moderate loss of disk space height. There is hypertrophic far left lateral disk spurs seen. There is slight increased size of the disk herniation component extending into the right subarticular region. There is now moderate right neural foramen narrowing which is minimally progressed and moderate to severe left neural foramen narrowing which is stable. There is mild to moderate central canal stenosis which is slightly progressed. L4-L5: There is interval increased size of a diffuse disk bulge with posterior disk herniation component. There is severe right facet arthropathy/hypertrophy and moderate left facet arthropathy which has progressed. There is moderate central canal stenosis which has progressed. There is mild left neural foramen narrowing which is stable, moderate to severe right neural foramen narrowing which is slightly progressed. L5-S1: There is stable grade 1 retrolisthesis of L5 on S1. There is diffuse disk bulge with severe loss of disk space height with disk spurs extend posteriorly and into the foraminal regions bilaterally. There is severe right facet arthropathy/hypertrophy which is slightly progressed. There is moderate left facet arthropathy. There is no significant central canal stenosis. There is severe bilateral neural foramen narrowing which has not significantly progressed. IMPRESSION: There is interval progression of moderate to severe multilevel lumbar spine degenerative disc disease and dextroscoliosis of the lumbar spine. This described in detail above. Dictated by: Dictated on workstation # [id number]
== END ==
LOC: RAD 08:45
PROVIDERS: ATTEND Family Medicine
DX: M47.816 Spondylosis without myelopathy or radiculopathy, lumbar region (principal); M51.26 Other intervertebral disc displacement, lumbar region; M51.27 Other intervertebral disc displacement, lumbosacral region; M51.36 Other intervertebral disc degeneration, lumbar region; M51.37 Other intervertebral disc degeneration, lumbosacral region; M48.061 Spinal stenosis, lumbar region without neurogenic claudication; M48.07 Spinal stenosis, lumbosacral region; M41.86 Other forms of scoliosis, lumbar region; M43.16 Spondylolisthesis, lumbar region; M43.17 Spondylolisthesis, lumbosacral region
CPT/HCPCS: 72148

== ENCOUNTER → 2020-12-09 | Outpatient (CLI) | payer OTHER ==
--- NOTE | 2020-12-09 09:07 | Diagnostic Imaging Report ---
INDICATION: Postmenopausal state COMPARISON: 03/29/2011 FINDINGS: AP Spine L1-L4: [BMD (g/cm2): 1.155] [T-Score: -0.4] [Z-Score: 0.4] [BMD Previous: 1.302] [BMD % Change: -11.3] LT Hip Neck: [BMD (g/cm2): 0.902] [T-Score: -1.0] [Z-Score: 0.0] LT Hip Total: [BMD (g/cm2):0.992] [T-Score:-0.1] [Z-Score: 0.5] [BMD Previous: 0.988] [BMD % Change: 0.4] RT Hip Neck: [BMD (g/cm2):0.895] [T-Score:-1.0] [Z-Score:0.0] RT Hip Total: [BMD (g/cm2):0.956] [T-score:-0.4] [Z-Score:0.2] [BMD Previous:0.995] [BMD % Change:-3.9] *Indicates significant change from prior examination based on 95% confidence level. World Health Organization criteria for BMD interpretation classify patients as Normal (T-score at or above -1.0), Osteopenic (T-score between -1.0 and -2.5) or Osteoporotic (T-score at or below -2.5). LIMITATIONS AND MODIFICATION: None. FRACTURE RISK (FRAX SCORE): Not calculated given normal bone mineral density IMPRESSION: 1. Normal bone mineral density. 2. No significant change in bone mineral density since prior examination. 3. See below National Osteoporosis Foundation guidelines on when to potentially initiate pharmacologic therapy. Based on the National Osteoporosis Foundation Guidelines, pharmacologic treatment should be initiated in any of the following, unless clinical conditions suggest otherwise: * Any patient with prior fragility fracture of the hip or vertebrae. A spine fracture indicates 5X risk for subsequent spine fracture and 2X risk for subsequent hip fracture. * Osteoporosis (T-score <-2.5). * Postmenopausal women and men age 50 and older with low bone mass/osteopenia (T-score between -1.0 and -2.5) by DXA and 10-year major osteoporotic fracture greater than 20% or a 10-year probability of hip fracture greater than 3%. These fracture risks are supplied above in the FRAX score, if applicable. * Clinician judgement and/or patient preferences may indicate treatment for people with 10-year fracture probabilities above or below these levels. Dictated by: Dictated on workstation # [id number]
== END ==
LOC: RAD 08:27
PROVIDERS: ATTEND Family Medicine
DX: Z78.0 Asymptomatic menopausal state (principal)
CPT/HCPCS: 77080

== ENCOUNTER 2021-05-11 09:14 | Emergency (ER) | payer OTHER ==
[~2021-05-11] VITALS: Ht 167.7 cm; Wt 77.1 kg
[~2021-05-11 09:14] MED LIST changes: -FLUO20CA46; +FLUO20CA48
[2021-05-11] MEDS ORDERED: ASPIRIN 81 MG CHEW (CHILDREN'S ASA) PO STA (10:22)
--- NOTE | 2021-05-11 10:30 | ED Chest Pain ---
General Chief Complaint: Chest Pain Stated Complaint: CP,ELEVATED BP Nursing Triage Note: PT AMB TO [facility] 3 WITH COMPLAINT OF CP AND HTN. STATES SHE HAD A NIGHTMARE LAST NIGHT AND WOKE UP WITH LEFT SIDED CP AND BP IN THE 160s. WENT TO [facility] AND WAS SENT OVER HERE FOR FURTHER EVALUATION. Source: patient Exam Limitations: no limitations History of Present Illness Date Seen by Provider: May 11, 2021 Time Seen by Provider: 10:15 Initial Comments Patient is a 60-year-old female who presents to the emergency room with a chief complaint of left-sided chest tightness. She woke up with it at about 4 AM this morning. Patient states the discomfort seems to radiate a little into her left anterior shoulder. She feels a little short of breath with it. She rates it at "4" currently and was at its worse a "6". She has a strong family history of coronary artery disease in family members under the age of 55. She does not take medications for hypertension or diabetes. She is not and has not ever been a smoker. She did have evaluation she believes with a chemical stress test back in 2017. She did not get heart catheterization afterwards. She denies any recent illnesses such as fevers, chills, productive cough. She has had a little bladder discomfort in the last week but had a urine culture done that was reported as negative to her. She feels a little swollen today. She states last night she suffered with nightmares all night long and believes that may be the chest discomfort resulted from anxiety/panic. She has not taken anything for the symptoms. She is a little hypertensive and woke up and checked her blood pressure on her wrist cuff this morning and her numbers she states were in the triple digits. She went to her primary care physician's office this morning, Dr. Kevin and they sent her here to the emergency department. All other review of systems reviewed and negative except as stated. Timing/Duration: 4-6 hours Severity/Quality: moderate, tightness Location: substernal (left), shoulder (left) Radiation: shoulders (left anterior shoulder) Activities at Onset: sleep Prior CP/Workup: cardiolye scan ASA po AWNING MAKER: No NTG SL AWNING MAKER: No Associated Symptoms: shortness of breath Allergies and Home Medications Allergies Coded Allergies: morphine (Verified Allergy, Intermediate, 10/28/16) butorphanol (Unverified Allergy, Mild, 04/11/09) celecoxib (Unverified Allergy, Mild, 04/11/09) gabapentin (Verified Allergy, Unknown, DIZZINESS, 04/09/15) Patient Home Medication List Home Medication List Reviewed: Yes Fluoxetine HCl (Fluoxetine HCl) 20 Mg Capsule, (Reported) Entered as Reported by: RADHA CERDA on 10/28/16 164 Hydrocodone Bit/Acetaminophen (Lortab 5 Mg Tablet) 1 Each Tablet, (Reported) Entered as Reported by: RADHA CERDA on 10/28/16 164 Levothyroxine Sodium (Levothyroxine Sodium) 50 Mcg Tablet, (Reported) Entered as Reported by: RADHA CERDA on 10/28/16 164 Liothyronine Sodium (Cytomel) 5 Mcg Tablet, 5 MCG PO DAILY, (Reported) Entered as Reported by: MARY BAKER on 04/14/14 1602 Lorazepam (Lorazepam) 1 Mg Tablet, (Reported) Entered as Reported by: RADHA CERDA on 10/28/161643 Meloxicam (Meloxicam) 7.5 Mg Tablet, (Reported) Entered as Reported by: RADHA CERDA on 10/28/16 164 Omeprazole (Omeprazole) 20 Mg Capsule., (Reported) Entered as Reported by: RADHA CERDA on 10/28/16 164 Ondansetron HCl (Ondansetron HCl) 4 Mg Tablet, (Reported) Entered as Reported by: RADHA CERDA on 10/28/16 164 Potassium Chloride (Potassium Chloride) 10 Meq Tablet.er, 10 MEQ PO DAILY, (Reported) Entered as Reported by: MARIBEL POLO on 04/09/15 1459 Tramadol HCl (Tramadol HCl) 50 Mg Tablet, (Reported) Entered as Reported by: RADHA CERDA on 10/28/16 164 Review of Systems Review of Systems Constitutional: see HPI EENTM: No Symptoms Reported Respiratory: SOA at Rest Cardiovascular: Chest Pain Gastrointestinal: No Symptoms Reported Genitourinary: No Symptoms Reported Musculoskeletal: other (ankle and hand swelling) Skin: no symptoms reported Psychiatric/Neurological: Anxiety All Other Systems Reviewed Negative Unless Noted: Yes Past Kdqeknk-Breuvy-Ysucef Hx Patient Social History Tobacco Use?: No Use of E-Cig and/or Vaping dev: No Substance use?: No Alcohol Use?: No Pt feels they are or have been: No Immunizations Up To Date Influenza Vaccine Up-to-Date: Yes; Up-to-Date First/Initial COVID19 Vaccinat: SPRING 2020 Second COVID19 Vaccination Ez: SPRING 2020 COVID19 Vaccine Supervising Producer: CHERRY Seasonal Allergies Seasonal Allergies: Yes Past Medical History Surgeries: Yes (back, hand, kidney biopsy) Adenoidectomy, Breast, Hysterectomy, Orthopedic, Tonsillectomy Respiratory: No Cardiac: No (HX OF CHEST PAIN) Neurological: No Reproductive Disorders: No Sexually Transmitted Disease: No Gastrointestinal: No Musculoskeletal: Yes (BACK/HAND/OSTEOARTHRITIS/DEGENERATIVE DISC) Degenerate Disk Disease, Arthritis Endocrine: Yes Hypothyroidsim 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 0.0oz. [id number]; 27.00 BMI Method:Stated General Appearance: No Apparent Distress, WD/WN HEENT: PERRL/EOMI Neck: Normal Inspection Respiratory: Lungs Clear, Normal Breath Sounds, No Accessory Muscle Use, No Respiratory Distress Cardiovascular: Regular Rate, Rhythm, Normal Peripheral Pulses Gastrointestinal: Non Tender, Soft Extremity: Normal Capillary Refill, Normal Inspection, Normal Range of Motion, Non Tender, No Calf Tenderness, No Pedal Edema Neurologic/Psychiatric: Alert, Oriented x3, No Motor/Sensory Deficits, Normal Mood/Affect Skin: Normal Color, Warm/Dry Progress/Results/Core Measures Results/Orders Lab Results Laboratory Tests Test 05/11/21 10:48 Range/Units White Blood Count 6.9 4.3-11.0 10^3/uL Red Blood Count 4.53 3.80-5.11 10^6/uL Hemoglobin 13.3 11.5-16.0 g/dL Hematocrit 41 35-52 % Mean Corpuscular Volume 90 80-99 fL Mean Corpuscular Hemoglobin 29 25-34 pg Mean Corpuscular Hemoglobin Concent 33 32-36 g/dL Red Cell Distribution Width 13.0 10.0-14.5 % Platelet Count 265 130-400 10^3/uL Mean Platelet Volume 9.8 9.0-12.2 fL Immature Granulocyte % (Auto) 0 % Neutrophils (%) (Auto) 67 42-75 % Lymphocytes (%) (Auto) 24 12-44 % Monocytes (%) (Auto) 6 0-12 % Eosinophils (%) (Auto) 2 0-10 % Basophils (%) (Auto) 1 0-10 % Neutrophils # (Auto) 4.6 1.8-7.8 10^3/uL Lymphocytes # (Auto) 1.6 1.0-4.0 10^3/uL Monocytes # (Auto) 0.4 0.0-1.0 10^3/uL Eosinophils # (Auto) 0.1 0.0-0.3 10^3/uL Basophils # (Auto) 0.1 0.0-0.1 10^3/uL Immature Granulocyte # (Auto) 0.0 0.0-0.1 10^3/uL Sodium Level 142 135-145 MMOL/L Potassium Level 3.7 3.6-5.0 MMOL/L Chloride Level 110 H 98-107 MMOL/L Carbon Dioxide Level 21 21-32 MMOL/L Anion Gap 11 5-14 MMOL/L Blood Urea Nitrogen 8 7-18 MG/DL Creatinine 0.73 0.60-1.30 MG/DL Estimat Glomerular Filtration Rate 95 BUN/Creatinine Ratio 11 Glucose Level 102 70-105 MG/DL Calcium Level 9.1 8.5-10.1 MG/DL Total Creatine Kinase 52 29-168 U/L Troponin I < 0.028 <0.028 NG/ML My Orders Orders - KATERYNA OCHOA MD Ed Iv/Invasive Line Start (05/11/21 10:22) Cbc With Automated Diff (05/11/21 10:22) Basic Metabolic Panel (05/11/21 10:22) Creatine Kinase (05/11/21 10:22) Troponin I [place] (05/11/21 10:22) Chest 1 View, Ap/Pa Only (05/11/21 10:22) Ekg Tracing (05/11/21 10:22) Aspirin Chewable Tablet (Baby Aspirin Ch (05/11/21 10:22) Vital Signs/I&O 05/11/21 05/11/21 09:21 11:52 Pulse 78 69 Resp 10 16 B/P (MAP) 139/94 (109) 153/97 Pulse Ox 98 98 O2 Delivery Room Air Room Air Blood Pressure Mean: 109 Progress Progress Note : Time: 11:40 Progress Note Patient seen and examined, evaluated with EKG, chest x-ray, laboratory studies including CK and troponin. All of her labs are within normal range. Her troponin was drawn at about 5 to 6 hours post onset of chest pain. She has a normal EKG without ectopy or ST segment elevation or depression. Just nonspecific flattening in the inferior leads. She has had stable vital signs albeit a little bit hypertensive throughout the morning. I have advised her to keep a record of her blood pressure over the next week and bring that to Dr. Kevin's office for further evaluation and management of her blood pressure. I have also counseled her on return precautions, if she has a return of chest d iscomfort with sweating, nausea, shortness of breath or radiation of the pain she needs to come back to the emergency department. She verbalized understanding. All questions are sought and answered. Patient is stable for discharge. Initial ECG Impression Date: May 11, 2021 Initial ECG Impression Time: 09:31 Initial ECG Rate: 71 Initial ECG Rhythm: Normal Sinus Initial ECG Intervals: Normal Initial ECG Impression: Nonspecific Changes (A little ST-T wave flattening in the inferior leads, no ectopy is noted, normal sinus rhythm, normal intervals) Diagnostic Imaging Diagonstic Imaging: Xray Plain Films/CT/US/NM/MRI: chest Comments [facility], [place] NAME: DARWIN SHAFFER [facility] REC#: [id number] PT STATUS: REG ER : 1960 PHYSICIAN: KATERYNA OCHOA MD ADMIT DATE: 05/11/21/ER Signed Date of Exam:05/11/21 CHEST 1 VIEW, AP/PA ONLY Chest pain and hypertension. EXAMINATION: Chest 05/11/2021 COMPARISON: 10/28/2016 FINDINGS: Single view chest The heart and pulmonary vasculature appear unremarkable. Lungs and pleural spaces clear other than a vague density in the periphery of the left upper lung superimposed upon the posterior left 5th rib. This is likely caused by superimposition of osseous structures and vessels. Follow-up recommended to exclude a nodule. There are no effusions. There is no pneumothorax. IMPRESSION: 1. Vague density in the peripheral left upper lung nonspecific see above discussion. Otherwise negative chest. Dictated by: Dictated on workstation # [id number] Dict: 05/11/21 1100 Trans: 05/11/[address] [facility] [id number] Interpreted by: CAMELIA TSE MD Electronically signed by: CAMELIA TSE MD 05/11/21 1109 Departure Impression Primary Impression: Chest pain Qualified Codes: R07.9 - Chest pain, unspecified Additional Impressions: Anxiety Elevated BP without diagnosis of hypertension Disposition: HOME, SELF-CARE Condition: Stable Departure-Patient Inst. Decision time for Depature: 11:42 Referrals: ESSIE KEVIN MD (PCP/Family) Primary Care Physician Patient Instructions: Chest Pain That Is Not Caused by the Heart (DC) Add. Discharge Instructions: Keep a log of your blood pressures over the course of the next week at various intervals throughout the day so that you can take those to Dr. Kevin's office to further evaluate your blood pressure and need for medications. Continue your other daily prescribed medications. You will need a follow-up chest x-ray in a few weeks to reevaluate the left upper lobe "density" identified on today's exam. Return to the emergency room for any return of chest pain especially if it causes shortness of breath, sweating, nausea or the pain radiates to other locations. Copy Copies To 1: ESSIE KEVIN MD, KATHRYN M MD May 11, 2021 10:30
[2021-05-11 10:56] LABS: BASOPHILS # (AUTO) 0.1 10^3/uL (0.0-0.1); BASOPHILS % (AUTO) 1 % (0-10); EOSINOPHILS # (AUTO) 0.1 10^3/uL (0.0-0.3); EOSINOPHILS % (AUTO) 2 % (0-10); HEMATOCRIT 41 % (35-52); HEMOGLOBIN 13.3 g/dL (11.5-16.0); LYMPHOCYTES # (AUTO) 1.6 10^3/uL (1.0-4.0); LYMPHOCYTES % (AUTO) 24 % (12-44); MEAN CORPUSCULAR HEMOGLOBIN 29 pg (25-34); MEAN CORPUSCULAR HGB CONC 33 g/dL (32-36); MEAN CORPUSCULAR VOLUME 90 fL (80-99); MEAN PLATELET VOLUME 9.8 fL (9.0-12.2); MONOCYTES # (AUTO) 0.4 10^3/uL (0.0-1.0); MONOCYTES % (AUTO) 6 % (0-12); NEUTROPHILS # (AUTO) 4.6 10^3/uL (1.8-7.8); NEUTROPHILS % (AUTO) 67 % (42-75); PLATELET COUNT 265 10^3/uL (130-400); WHITE BLOOD COUNT 6.9 10^3/uL (4.3-11.0)
[2021-05-11 11:07] LABS: CHLORIDE 110 MMOL/L (98-107); POTASSIUM 3.7 MMOL/L (3.6-5.0); SODIUM 142 MMOL/L (135-145)
--- NOTE | 2021-05-11 11:07 | Diagnostic Imaging Report ---
Chest pain and hypertension. EXAMINATION: Chest 05/11/2021 COMPARISON: 10/28/2016 FINDINGS: Single view chest The heart and pulmonary vasculature appear unremarkable. Lungs and pleural spaces clear other than a vague density in the periphery of the left upper lung superimposed upon the posterior left 5th rib. This is likely caused by superimposition of osseous structures and vessels. Follow-up recommended to exclude a nodule. There are no effusions. There is no pneumothorax. IMPRESSION: 1. Vague density in the peripheral left upper lung nonspecific see above discussion. Otherwise negative chest. Dictated by: Dictated on workstation # [id number]
[2021-05-11 11:08] LABS: CALCIUM 9.1 MG/DL (8.5-10.1); GLUCOSE 102 MG/DL (70-105)
[2021-05-11 11:10] LABS: CARBON DIOXIDE 21 MMOL/L (21-32)
[2021-05-11 11:12] LABS: CREATININE SERUM 0.73 MG/DL (0.60-1.30); GFR ESTIMATED 95
[2021-05-11 11:13] LABS: BUN/CREATININE RATIO 11
[2021-05-11 11:15] LABS: CREATINE KINASE 52 U/L (29-168)
[2021-05-11 11:52] VITALS: BP 153/97
== END 2021-05-11 11:52 | disposition home or self-care (01) ==
LOC: EDUNIT# 09:14 → ER 09:16
DX: R07.9 Chest pain, unspecified (principal); F41.9 Anxiety disorder, unspecified; R03.0 Elevated blood-pressure reading, without diagnosis of hypertension; E03.9 Hypothyroidism, unspecified; F32.9 Major depressive disorder, single episode, unspecified; Z79.890 Hormone replacement therapy; Z79.899 Other long term (current) drug therapy
CPT/HCPCS: 36415; 71045; 80048; 82550; 84484; 85025; 93005

== ENCOUNTER → 2021-09-30 | Outpatient (CLI) | payer OTHER ==
[~2021-09-30] MED LIST changes: +CATHETER FLUSH 10 ML SYR IV PRN; +HOLD METFORMIN - RECEIVED CONTRAST 20 ML VIAL IV SCH; +IOHEXOL 350 MG/ML 100 ML (OMNIPAQUE 350) VIAL IV ONE; +NS 100 ML (IVPB) BAG IV ONE
--- NOTE | 2021-09-30 08:34 | Diagnostic Imaging Report ---
PROCEDURE: US Gallbladder. TECHNIQUE: Multiple real-time grayscale images were obtained over the right upper quadrant in various projections. INDICATION: Right upper quadrant pain. FINDINGS: Liver is normal in size at 15 cm. Portal vein is patent and shows normal direction of flow. No liver mass is detected. Gallbladder is without stones or sludge. There is no wall thickening or biliary duct dilatation. Pancreas unremarkable. Aorta is nonaneurysmal. IVC is patent. Right kidney is without calculi or hydronephrosis. There is no ascites. IMPRESSION: Unremarkable gallbladder ultrasound. Dictated by: Dictated on workstation # [id number]
--- NOTE | 2021-09-30 08:35 | Diagnostic Imaging Report ---
PROCEDURE: CT abdomen and pelvis with and without contrast. TECHNIQUE: Precontrast acquisitions were acquired through the abdomen and pelvis. Multiple contiguous axial images were obtained through the abdomen and pelvis after the administration of intravenous contrast. Auto Exposure Controls were utilized during the CT exam to meet ALARA standards for radiation dose reduction. INDICATION: Right upper quadrant abdominal pain for 6 months. Patient has a family history of pancreatic carcinoma. Correlation is made with prior CT from 10/13/2018. The lung bases are clear. No discrete liver mass is detected. Gallbladder is unremarkable. There is no biliary duct dilatation. The pancreas and spleen are unremarkable. No adrenal mass is identified. Kidneys are unremarkable. No mass or hydronephrosis is seen. Aorta is nonaneurysmal. No central retroperitoneal or mesenteric lymphadenopathy is seen. The small and large bowel loops are normal caliber. There is moderate stool in the colon. No obstruction is seen. There are no inflammatory changes. No free fluid or fluid collection is seen. There is diverticulosis of the sigmoid. Bladder is decompressed. Uterus appears to be surgically absent. No pelvic lymphadenopathy is identified. Bony structures demonstrate multilevel degenerative disc disease but no acute abnormality detected. IMPRESSION: Stable CT abdomen and pelvis with and without contrast when compared with exam from 10/13/2018. No abdominal or pelvic mass or lymphadenopathy is detected. There is uncomplicated diverticulosis. Dictated by: Dictated on workstation # [id number]
== END ==
LOC: RAD 07:15
PROVIDERS: ATTEND Nurse Practitioner Family
DX: R10.11 Right upper quadrant pain (principal); Z80.0 Family history of malignant neoplasm of digestive organs
CPT/HCPCS: 74178; 76705

== ENCOUNTER → 2022-12-16 | Outpatient (CLI) | payer OTHER ==
[~2022-12-16] MED LIST changes: -CATHETER FLUSH 10 ML SYR IV PRN; -HOLD METFORMIN - RECEIVED CONTRAST 20 ML VIAL IV SCH; -IOHEXOL 350 MG/ML 100 ML (OMNIPAQUE 350) VIAL IV ONE; -NS 100 ML (IVPB) BAG IV ONE
--- NOTE | 2022-12-17 08:48 | Diagnostic Imaging Report ---
INDICATION: Bilateral mastectomy with bilateral breast reconstruction. Sonographic interrogation of all 4 quadrants of both the right and left breast as well as retroareolar regions of both breasts was performed. No sonographic abnormality is seen. No solid or cystic mass is identified. An area of pain in the lateral left breast was also evaluated and shows no underlying abnormality. IMPRESSION: No sonographic abnormality is detected. ACR BI-RADS Category 1: Negative. Result letter will be mailed to the patient. Note: At least 10% of breast cancer is not imaged by mammography. BI-RADS Category 1 Dictated by: Dictated on workstation # [id number]
== END ==
LOC: RAD 13:12
PROVIDERS: ATTEND Family Medicine
DX: Z12.31 Encounter for screening mammogram for malignant neoplasm of breast (principal); Z98.82 Breast implant status; Z90.13 Acquired absence of bilateral breasts and nipples; Z98.890 Other specified postprocedural states

== ENCOUNTER → 2023-01-26 | Outpatient (CLI) | payer OTHER ==
--- NOTE | 2023-01-26 11:53 | Diagnostic Imaging Report ---
INDICATION: Shooting pain down the left leg. COMPARISON: Exam is correlated with lumbar MR of 11/06/2020. FINDINGS: Lumbar statures are stable. Their alignment is stable and anatomic. When differing modalities taken into account, there is likely progressive severe degenerative change at the L2-L3 level. There is lower lumbar facet arthrosis. No fracture. IMPRESSION: Severe degenerative disease, most notable at the L2-L3 level where it is likely progressed from the correlative MRI. No acute abnormality or malalignment. Dictated by: Dictated on workstation # [id number]
--- NOTE | 2023-01-26 12:53 | Diagnostic Imaging Report ---
EXAMINATION: Left hip radiographs, 2 views. COMPARISON: None. HISTORY: 62-year-old female, left leg and hip pain. FINDINGS: The left hip is not dislocated. There is no joint space loss of the left hip, osteophyte formation, or subchondral cystic change. There is no identified acute fracture. There is no identified bone lesion. There are right facet degenerative changes at L5-S1. IMPRESSION: 1. Unremarkable radiographic evaluation of the left hip. 2. Right facet degenerative changes at L5-S1. Dictated by: Dictated on workstation # [id number]
--- NOTE | 2023-01-26 14:29 | Diagnostic Imaging Report ---
EXAMINATION: Sacroiliac joint radiographs, 3 views. COMPARISON: CT abdomen and pelvis September 30, 2021. HISTORY: 62-year-old female, sacral and left lower extremity pain. FINDINGS: There are very mild sacroiliac degenerative changes bilaterally. There is no identified bone erosion or bone ankylosis. The joint spaces of both hips appear well preserved. There is severe disc height loss at L5-S1. There is mild disc loss at L4-L5. IMPRESSION: 1. Very mild bilateral sacroiliac degenerative changes without findings to suggest a seronegative spondyloarthropathy. 2. Severe disc degenerative changes at L5-S1. Dictated by: Dictated on workstation # [id number]
== END ==
LOC: RAD 10:10
PROVIDERS: ATTEND Nurse Practitioner Family
DX: M51.37 Other intervertebral disc degeneration, lumbosacral region (principal); M47.817 Spondylosis without myelopathy or radiculopathy, lumbosacral region; M46.1 Sacroiliitis, not elsewhere classified; M25.552 Pain in left hip
CPT/HCPCS: 72100; 72202; 73502